=== PATIENT | male | born 1945 | race Caucasian/White ===

== ENCOUNTER → 2016-11-11 | Outpatient (CLI) | payer OTHER | LOC: CIMAGING 15:37 | PROVIDERS: ATTEND Physical Medicine & Rehabilitation | DX: M25.512 Pain in left shoulder (principal) | CPT/HCPCS: 73030-PO ==

== ENCOUNTER → 2016-11-17 | Outpatient (CLI) | payer OTHER ==
[~2016-11-17] MED LIST: IOPAMIDOL (ISOVUE 370) 100 ML BTL IV ONE; LIDOCAINE 1% 300 MG/30 ML SDV ONE; LIDOCAINE 1% 5 ML SDV ONE
== END ==
LOC: FIMAGING 13:09
PROVIDERS: ATTEND Physical Medicine & Rehabilitation
PROC: 3E0U3KZ Introduction of Other Diagnostic Substance into Joints, Percutaneous Approach (ICD-10-PCS; principal; 2016-11-17)
DX: S46.012A Strain of muscle(s) and tendon(s) of the rotator cuff of left shoulder, initial encounter (principal); S46.112A Strain of muscle, fascia and tendon of long head of biceps, left arm, initial encounter; S43.492A Other sprain of left shoulder joint, initial encounter; M19.012 Primary osteoarthritis, left shoulder; Z95.0 Presence of cardiac pacemaker
CPT/HCPCS: 23350; 73040; 73201; Q9967

== ENCOUNTER 2017-05-09 06:31 | Day surgery (SDC) | payer OTHER ==
--- NOTE | 2017-05-05 11:11 | GHP ---
[f rep st] PREOP HISTORY AND PHYSICAL DIAGNOSIS: Left shoulder rotator cuff tear. PLANNED SURGERY: Left shoulder arthroscopic rotator cuff repair, subacromial decompression, and distal clavicle excision. HISTORY OF PRESENT ILLNESS: The patient is a 72-year-old male with a long history of left shoulder pain. Recent MRI showed a full thickness tear in the rotator cuff. After discussing the risks and benefits of surgery, the patient opted for surgical intervention. PAST MEDICAL HISTORY: Hypertension. History of coronary artery disease. He has a pacemaker. He uses a CPAP machine. Also a history of cardiac stents being placed. MEDICATIONS: Atorvastatin, baby aspirin, Bactrim, clopidogrel, digoxin, famotidine, gemfibrozil, Prevnar 13, sertraline. ALLERGIES: Verapamil and contrast dye. SOCIAL HISTORY: Occasional alcohol use. No tobacco. No drug use. PHYSICAL EXAMINATION: GENERAL: He is alert and oriented, in no acute distress. SPINE: Examination of the cervical spine shows full pain free range of motion. The airway is clear. He is not tender. There are no carotid bruits heard. CARDIAC: Regular rate and rhythm. Normal S1, S2. No murmurs, rubs or gallops. PULMONARY: Lungs are clear. EXTREMITIES: Examination of the left upper extremity shows full passive and active range of motion. He has positive impingement signs. There is moderate weakness to rotator cuff testing. NEUROVASCULAR: Intact. ASSESSMENT/PLAN: The patient presents with a long history of left shoulder pain , secondary to rotator cuff tear. After discussing the risks and benefits of surgery the patient opts for surgical intervention. /[id number]/MODL MTDD
--- NOTE | 2017-05-09 06:16 | PDANEPAE ---
ANE History of Present Illness 72 yo male with full thickness RCT in L shoulder for repair. ANE Past Medical History - Cardiovascular History Hx Hypertension: No Hx Arrhythmias: Yes Hx Chest Pain: No Hx Coronary Artery / Peripheral Vascular Disease: Yes Hx CHF / Valvular Disease: No Hx Palpitations: No Cardiovascular History Comment: HX- WPW SYNDROME s/p ablation 1993. STENTS X3. PACEMAKER for bifascicular block and syncope. HYPERLIPIDEMIA - Pulmonary History Hx COPD: No Hx Asthma/Reactive Airway Disease: No Hx Recent Upper Respiratory Infection: No Hx Oxygen in Use at Home: No Hx Sleep Apnea: Yes Sleep Apnea Screening Result - Last Documented: Positive Pulmonary History Comment: POS SLEEP APNEA W/CPAP - Neurologic History Hx Cerebrovascular Accident: No Hx Seizures: No Hx Dementia: No - Endocrine History Hx Diabetes: No Hypothyroid: No - Renal History Hx Renal Disorders: No - Liver History Hx Hepatic Disorders: No - Neurological & Psychiatric Hx Hx Neurological and Psychiatric Disorders: Yes Neurological / Psychiatric History Comment: DEPRESSION - SERTRALINE - Cancer History Hx Cancer: No - Congenital Disorder History Hx Congenital Disorders: No - GI History GERD: moderate Hx Gastrointestinal Disorders: No - Other Health History Other Health History: SENSITIVE SKIN. THROMBOCYTOPENIA - Chronic Pain History Chronic Pain: No - Surgical History Prior Surgeries: KNEE SURGERY/REPAIR QUADRICEPS. PACEMAKER IMPLANTS X2. STENTS PLACED X3. TURP. HERNIA REPAIR. LUMBAR LAMINECTOMY. R RIBS X3. L SMALL FINGER ANE Review of Systems Review of Systems: - Exercise capacity METS (RN): 4 METS - Pacemaker Pacemaker Ornamenter: [employer] Date Pacemaker Last Checked: 03/29/2017 ANE Patient History - Allergies Allergies/Adverse Reactions: morphine Allergy (Intermediate, Verified 05/08/17 16:38) HALLUCINATIONS CONTRAST DYE Adverse Reaction (Severe, Uncoded 05/09/16 18:30) Rash RESERPINE Adverse Reaction (Severe, Uncoded 05/09/16 18:30) LOW BP VERAPAMIL Adverse Reaction (Unknown, Uncoded 05/09/16 18:30) - Home Medications Home Medications: Clopidogrel Bisulfate [Plavix] 06/26/11 [Last Taken Unknown] Gemfibrozil [Lopid] 06/26/11 [Last Taken Unknown] Aspirin 81mg (*) 05/09/16 [Last Taken Unknown] Atorvastatin Calcium 05/09/16 [Last Taken Unknown] Bactrim DS 05/09/16 [Last Taken Unknown] Sertraline HCl 05/09/16 [Last Taken Unknown] Famotidine 05/08/17 [Last Taken Unknown] Herbals/Supplements -Info Only 05/08/17 [Last Taken Unknown] - Smoking Hx Smoking Status: Never smoked - Family Anes Hx Family Hx Anesthesia Complications: NEG ANE Labs/Vital Signs - Vital Signs Height: 172.72 cm Weight: 97.522 kg ANE Anesthesia Plan Anesthesia Plan: GA w LMA Regional Anesthesia: interscalene BP NB
[2017-05-09] MEDS ORDERED: BUPIVACAINE/EPI 0.5% 30 ML SDV ONE (06:55)
[2017-05-09 07:01] VITALS: PULSE 91
[2017-05-09] MEDS ORDERED: LR 1,000 ML IV ONE (07:02)
[2017-05-09] MEDS ORDERED: PROPOFOL/EMULSION 500 MG/50 ML BOTTLE IV ONE (07:22)
[2017-05-09] MEDS ORDERED: DEXAMETHASONE 4 MG/ML VIAL ONE ×2 (07:22)
[2017-05-09] MEDS ORDERED: fentaNYL 100 MCG/2 ML INJ ONE ×2 (07:22)
[2017-05-09] MEDS ORDERED: ROPIVACAINE HCL 150 MG/30 ML INJ ONE (07:24)
[2017-05-09] MEDS ORDERED: CALCIUM CHLORIDE 1 GM/10 ML INJ ONE (08:28)
[2017-05-09] MEDS ORDERED: THROMBIN (BOVINE) 5,000 UNIT VIAL TP ONE (08:28)
[2017-05-09] MEDS ORDERED: NALOXONE HCL 0.4 MG/ML INJ IVP PRN ×2 (08:37→09:23)
[2017-05-09] MEDS ORDERED: PROMETHAZINE HCL 25 MG/ML INJ IVP PRN (09:23)
[2017-05-09] MEDS ORDERED: ALBUTEROL 3 ML DEYVIAL IH PRN (09:23)
[2017-05-09] MEDS ORDERED: OXYCODONE/APAP 5/325 TAB PO PRN ×2 (09:23→09:39)
[2017-05-09] MEDS ORDERED: ONDANSETRON 4 MG/2 ML VIAL IVP PRN (09:23)
[2017-05-09] MEDS ORDERED: fentaNYL 100 MCG/2 ML INJ IVP PRN (09:23)
[2017-05-09] MEDS ORDERED: LR 500 ML IV PRN (09:23)
[2017-05-09] MEDS ORDERED: ACETAMINOPHEN 500 MG TAB PO PRN (09:23)
[2017-05-09] MEDS ORDERED: ACETAMINOPHEN 325 MG TAB PO PRN (09:39)
[2017-05-09] MEDS ORDERED: HYDROCODONE/APAP 5/325 TAB PO PRN (09:39)
--- NOTE | 2017-05-09 09:39 | POSTOPPROG ---
Post Op Note Date of Operation: 05/09/17 Surgeon: Billie Marion Title Examiner: shannan Anesthesiologist: brennen Anesthesia: LMA Pre-op Diagnosis: l shoulder impingement with RCT and bicep tendinopathy Procedure: open l bicep tenodesis and r shoulder scope with rcr, sad, dce Inf/Abcess present in the surg proc area at time of surgery?: No Depth: Deep Incisional (Fascial) EBL: 50-100
--- NOTE | 2017-05-09 10:06 | POSTANESTH ---
Post Anesthetic Evaluation Cardiovascular Status: Normal, Stable, Similar to Pre-Op Cond (Suspect pt has some underlying HTN. Should be evaluated by PCP after recovered from shoulder surgery.) Respiratory Status: Normal, Stable Level of Consciousness/Mental Status: Can Participate in Eval, Mildly Sleepy, Arousable Pain Control: Adequate, Prn Tx Ordered Nausea/Vomiting Control: Adequate, Prn Tx Ordered Complications Possibly Related to Anesthesia: None Noted
[2017-05-09 10:07] VITALS: TEMP 98.1
[2017-05-09 10:49] VITALS: RESP 15
--- NOTE | 2017-05-09 13:11 | GOP ---
[f rep st] OPERATIVE REPORT DATE OF OPERATION: 05/09/2017 SURGEON: Billie Marion MD HAIRSPRING ASSEMBLER: Trav Bazan, CSFA, LSA, whose presence was medically necessary. ANESTHESIA: By LMA plus scalene nerve block per surgeon's request. PREOPERATIVE DIAGNOSIS: Left shoulder impingement syndrome with rotator cuff tear and biceps tendino alfredo. POSTOPERATIVE DIAGNOSIS: Left shoulder impingement syndrome with rotator cuff tear and biceps tendin opathy with labral tear. PROCEDURE PERFORMED: Open left biceps tenodesis with right and left shoulder scope with rotator cuff repair x1, subacromial decompression, distal clavicle excision, debridement of biceps stump, rotator cuff, labrum and subacromial bursa. FINDINGS: INDICATIONS: This is a 72-year-old male with a several-month history of left shoulder pain and weakn ess worsening with use and with time. CT exam reveals a rotator cuff tear as well as a significant a nterior acromial curve, and biceps tendinopathy. He wishes to have surgery in order to resolve the p roblem. DESCRIPTION OF PROCEDURE: Patient brought to the operating room after the left side had been identif ied as correct side by the patient, nurse and physician. Once in the operating room, he was given a scalene block on the left side and then placed under general anesthesia using an LMA. Once asleep, charlie harrison was placed in a beach chair position with the left upper extremity sterilely prepped and draped in the usual fashion using GSI solution. Once prepped and draped, an incision was made off the posterol ateral corner of the acromion with the camera introduced without difficulty. Inspection of the joint revealed an abundant amount of fraying of the rotator cuff, the biceps tendon as well as the labrum therefore, the camera was removed from the shoulder and attention was turned to the anterior portion of the shoulder. With a 4 cm incision made directly over the area of the biceps tendon, sharp dissec tion carried down through the skin and subcutaneous layers. Bleeding was controlled using electrocau shad. Blunt dissection was then carried down between the deltopectoral interval onto the biceps chung th. The biceps sheath was incised. The biceps tendon was isolated, had #2 FiberWire woven into it a nd was cut short. The diameter was measured to be 6 mm in diameter. Therefore, a guidewire was plac ed into the bicipital groove. A 7 mm drill was passed over the guidewire through one cortex of the h umerus. A 9 mm anchor was then attached onto the sutures associated with the biceps, was driven into the bone and screwed in until flush with the bony surface. The wound was then thoroughly irrigated with antibiotic solution and was closed in layers to include 2-0 Vicryl suture for the fascial layer, the subcutaneous layers and a 3-0 V-Loc suture in a running subcuticular stitch was used for the ski n. Attention was turned back to the shoulder, with the camera reintroduced into the posterior portal , using an in to out technique, an anterior portal was made with a 6 x 75 mm threaded cannula placed through the anterior portal. A 3.5 mm smooth shaver was used to debride both the abundant amount of tearing of the labrum as well as the rotator cuff. A biter was used to remove the anchor of the jalil ps tendon and the biceps tendon was then able to be removed in its entirety. Once the rotator cuff, labrum and biceps stump had been adequately debrided, all instruments were removed from the subacromi al space, and, using the same portal sites, were reintroduced from the glenohumeral joint and then, u sing the same portal sites, were reintroduced in the subacromial space. A third incision was made 3 cm lateral to the acromial process in line with the posterior cortex of the clavicle with the camera switched to the lateral portal, and alternating using arthroscopic Bovie tip and a shaver, was used t o remove the abundant amount of bursal tissue as well as the soft tissue from the undersurface of the acromion. He was noted to have a short, sharp anterior curve and an acromionizer bur was brought th rough the posterior portal and used to remove that curve until achieving a flat ceiling. Attention w as turned to the distal clavicle which was noted to have a short, sharp inferior spur, and this was a lso debrided to create a flat surface using a combination of shaver and ta. Once completed, the ca leslee was switched back to the posterior portal. The rotator cuff edges that were torn were debrided as well as the bone overlying the greater tuberosity was eburnated, roughing it up in order to stimul ate a healing response. A #2 FiberWire was woven into the anterior and posterior arms of the rotator cuff tear. It was then attached onto a [employer] anchor that was driven into the bone pulling the rot ator cuff onto the eburnated bone. Once in place, the suture was cut short. All instruments were th en removed from the subacromial space with 30 cc of Marcaine infused in the subacromial space. The 3 portal sites were closed using 3-0 nylon suture in a [id number] type stitch with plasma gel eduardo johnny in the subacromial space. The bicipital wound was dressed with Steri-Strips, otherwise all wound s were then dressed with Xeroform, 4 x 4, and Tegaderm. He was completely undraped in the operating room, had a shoulder immobilizer placed on the left upper extremity. He was then woken up, extubated , transferred onto a stretcher, and sent to recovery room in good condition. /[id number]/MODL
--- NOTE | 2017-05-09 13:28 | PDHOMEO2F ---
Home Oxygen Face to Face Home Orders: I certify that a physician or a nurse practitioner or physician's kindergarten teacher assistant has had a [id number] encounter with this patient on the date of this order due to the diagnosis listed, which relates to the primary reason the patient requires home oxygen. Alternative treatments have been tried, or considered, and deemed ineffective. It is anticipated that supplemental oxygen will result in improvement with treatment. Home oxygen qualifying diagnosis: probable HTN - untreated, BRI on CPAP, post- surgery SpO2 on room air (%): 84 while sleeping, 86 while awake Frequency of home oxygen needed: continuous Home oxygen liters per minute: 3 Home oxygen delivery device: nasal cannula Concentrator: Yes E-tanks for mobility and back up: Yes If ordering portable O2, is the patient mobile in the home?: Yes I certify that, based on these findings, the home oxygen is medically necessary for this patient for the following length of time. Length of time home oxygen needed: 1 week Home Oxygen Comment: Pt should follow-up with Dr. Dutta for guidance on O2 supplementation with CPAP for his BRI.
--- NOTE | 2017-05-09 13:36 | GHP ---
[f rep st] HISTORY AND PHYSICAL DATE OF ADMISSION: 05/09/2017 CURRENT COMPLAINT: Left shoulder pain. HISTORY OF PRESENT ILLNESS: The patient is a 72-year-old male who has been evaluated by other physic ians for shoulder pain. There is snapping occurring in the shoulder, particularly with irritation of the humerus. He has difficulty sleeping secondary to the shoulder. CT exam revealed a full-thickness supraspinatus tear as well as subluxation of the biceps tendon. ALLERGIES: Include IV dye and verapamil. CURRENT MEDICATIONS: Include atorvastatin, clopidogrel, digoxin, famotidine, gemfibrozil, _, and sertraline. PAST MEDICAL/SURGICAL HISTORY: He has no prior history and no prior surgery, although he does have a pacemaker. SOCIAL HISTORY: He has never been a smoker. He lists no alcohol use. PHYSICAL EXAM: The patient has mild limitations to range of motion with pain and weakness to the sup raspinatus on his Speed's test. There is tenderness to biceps groove. ASSESSMENT AND PLAN: The patient has a left shoulder impingement syndrome with rotator cuff tear and biceps subluxation. The plan is to take him to the operating room to undergo a left shoulder scope w ith rotator cuff repair and possible biceps tenodesis. /[id number]/MODL
[2017-05-09 13:43] VITALS: BP 112/66
[2017-05-09 14:22] VITALS: O2SAT 95
== END 2017-05-09 14:22 | disposition home or self-care (01) ==
LOC: FSGY 06:31
PROVIDERS: ATTEND Orthopaedic Surgery
PROC: 0PBB4ZZ Excision of Left Clavicle, Percutaneous Endoscopic Approach (ICD-10-PCS; principal; 2017-05-09 07:15)
PROC: 6A550Z2 Pheresis of Platelets, Single (ICD-10-PCS; principal; 2017-05-09 07:15)
PROC: 0MB24ZZ Excision of Left Shoulder Bursa and Ligament, Percutaneous Endoscopic Approach (ICD-10-PCS; principal; 2017-05-09 07:15)
PROC: 3E0U3GC Introduction of Other Therapeutic Substance into Joints, Percutaneous Approach (ICD-10-PCS; principal; 2017-05-09 07:15)
PROC: 0LQ24ZZ Repair Left Shoulder Tendon, Percutaneous Endoscopic Approach (ICD-10-PCS; principal; 2017-05-09 07:15)
PROC: 0LM40ZZ Reattachment of Left Upper Arm Tendon, Open Approach (ICD-10-PCS; principal; 2017-05-09 07:15)
DX: M75.112 Incomplete rotator cuff tear or rupture of left shoulder, not specified as traumatic (principal); M75.42 Impingement syndrome of left shoulder; M75.22 Bicipital tendinitis, left shoulder; I25.10 Atherosclerotic heart disease of native coronary artery without angina pectoris; Z95.5 Presence of coronary angioplasty implant and graft; I10 Essential (primary) hypertension; E78.5 Hyperlipidemia, unspecified; Z95.0 Presence of cardiac pacemaker
CPT/HCPCS: 0232T; 23430; 29826; 29827; C1713; J0171; J1100; J2704; J2795; J3010

== ENCOUNTER 2017-05-09 19:58 | Inpatient (IN) | payer OTHER ==
[2017-05-09] MEDS ORDERED: LORazepam 2 MG/ML INJ IVP ONE (20:07)
[2017-05-09] MEDS ORDERED: NS 500 ML IV ONE (20:07)
[2017-05-09] MEDS ORDERED: methylPREDNISolone SOD SUCC 125 MG/2 ML VIAL IVP ONE (20:09)
--- NOTE | 2017-05-09 20:12 | EDPHY ---
H & P Time Seen by Provider: 05/09/17 19:59 HPI/ROS: CHIEF COMPLAINT: Shortness of breath HISTORY OF PRESENT ILLNESS: Patient is a 72-year-old man who comes with his by ambulance to the emergency department complaining of sudden-onset shortness of breath that began about an hour ago. He had rotator cuff surgery repair early this morning. He denies having any chest pain. He thinks that the problem is primarily anxiety. He was told earlier today that he is supposed to have an oxygen concentrator attached to his nasal BiPAP that he wears at night for sleep apnea. He called the oxygen company who said they would bring 1 by today but then around 630 he stated that they would not be able to. It was after this that he became acutely short of breath. He was however hypoxic here on room air at 88%. He denies leg pain or swelling. He is tachycardic and hypertensive. REVIEW OF SYSTEMS: Constitutional: denies: chills, fever, recent illness, recent injury EENTM: denies: blurred vision, double vision, nose congestion Respiratory: denies: cough, shortness of breath Cardiac: denies: chest pain, irregular heart rate, lightheadedness, palpitations Gastrointestinal/Abdominal: denies: abdominal pain, diarrhea, nausea, vomiting, blood streaked stools Genitourinary: denies: dysuria, frequency, hematuria, pain Musculoskeletal: denies: joint pain, muscle pain Skin: denies: lesions, rash, jaundice, bruising Neurological: denies: headache, numbness, paresthesia, tingling, dizziness, weakness Hematologic/Lymphatic: denies: blood clots, easy bleeding, easy bruising Immunologic/allergic: denies: HIV/AIDS, transplant EXAM: GENERAL: Anxious, overweight, and in no acute distress. HEAD: Atraumatic, normocephalic. EYES: Pupils equal round and reactive to light, extraocular movements intact, sclera anicteric, conjunctiva are normal. ENT: TMs normal, nares patent, oropharynx clear without exudates. Moist mucous membranes. NECK: Normal range of motion, supple without lymphadenopathy or JVD. LUNGS: Breath sounds clear to auscultation bilaterally and equal. No wheezes rales or rhonchi. HEART: Regular rate and rhythm without murmurs, rubs or gallops. ABDOMEN: Soft, nontender, normoactive bowel sounds. No guarding, no rebound. No masses appreciated. BACK: No CVA tenderness, no spinal tenderness, step-offs or deformities EXTREMITIES: Normal range of motion, no pitting or edema. No clubbing or cyanosis. NEUROLOGICAL: Cranial nerves II through XII grossly intact. Normal speech, normal gait. 5/5 strength, normal movement in all extremities, normal sensation PSYCH: Normal mood, normal affect. SKIN: Warm, dry, normal turgor, no visible rashes or lesions. 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, WPW with ablation and now pacemaker - Family History Significant Family History: No pertinent family hx - Social History Smoking Status: Never smoked Alcohol Use: Sober Drug Use: None Constitutional: Initial Vital Signs Temperature (C) 36.9 C 05/09/17 19:58 Heart Rate 130 H 05/09/17 19:58 Respiratory Rate 28 H 05/09/17 19:58 Blood Pressure 149/85 H 05/09/17 19:58 O2 Sat (%) 88 L 05/09/17 19:58 O2 Delivery Mode Room Air O2 (L/minute) 3 Allergies/Adverse Reactions: morphine Allergy (Intermediate, Verified 05/09/17 20:12) HALLUCINATIONS CONTRAST DYE Allergy (Severe, Uncoded 05/09/17 22:55) Rash RESERPINE Allergy (Severe, Uncoded 05/09/17 22:55) LOW BP VERAPAMIL Allergy (Unknown, Uncoded 05/09/17 22:55) Home Medications: Medication Instructions Recorded Aspirin [Aspirin 81mg (*)] 81 mg PO DAILY 05/09/16 Atorvastatin Calcium [Lipitor 40 40 mg PO HS 05/09/16 mg (*)] Sertraline HCl [Zoloft 50mg (*)] 50 mg PO DAILY 05/09/16 Sulfamethox/Tmp 800/160 mg 1 tab PO DAILY 05/09/16 [Bactrim Ds] Famotidine [Pepcid 20 MG (*)] 20 mg PO BID PRN 05/08/17 Herbals/Supplements -Info Only 1 ea PO DAILY 05/08/17 Cholecalciferol Vit D3 [Vitamin D3 1,000 units PO DAILY 05/10/17 (*)] Clopidogrel Bisulfate [Plavix (*)] 75 mg PO DAILY 05/10/17 Gemfibrozil [Lopid 600 MG (*)] 600 mg PO BIDAC 05/10/17 Glucosamine/Chondroitin 1 each PO DAILY 05/10/17 [Glucosamine/Chondroitin (*)] Hydrocodone/Acetaminophen [Souris 1 each PO Q4-6PRN PRN 05/10/17 5/325 (*)] Multivitamins [Multivitamin (*)] 1 each PO DAILY 05/10/17 Vitamin B Complex [B Complex] 1 each PO DAILY 05/10/17 Medical Decision Making - Diagnostics EKG Interpretation: An EKG obtained and was read and documented in trace view. Please see trace view for full reading and report. Ventricular paced rhythm, morphology unchanged from previous EKGs Imaging: Discussed imaging studies w/ bingo caller Radiologist ED Course/Re-evaluation: I discussed the test results with the patient and his . They are very averse to going home tonight and wish to be admitted to the hospital. He is saturating 95% on room air but remains tachycardic. I will add sepsis testing. They are very anxious because they are anesthesiologist from today spoke with the primary doctor and recommended that oxygen be added to the patient's CPAP at night. However neither of them new that the patient had early pneumonia at the time. 10:50 p.m. I discussed the case with agrees with admission Differential Diagnosis: Partial list of the Differential diagnosis considered include but were not limited to; pneumonia, PE, and atelectasis, anxiety and although unlikely based on the history and physical exam, I also considered dissection, acute coronary disease. - Data Points Laboratory Results: Laboratory Results 05/10/17 02:05 05/10/17 02:05 Medications Given: Hydrocodone Bitart/Acetaminophen (Souris 5/325) 1 - 2 tab PO Q4HRS PRN PRN Reason: Pain, Moderate Able to Take PO Stop: 05/20/17 01:28 Last Admin: 05/10/17 20:56 Dose: 2 tab Atorvastatin Calcium (Lipitor) 40 mg PO HS DAVID Stop: 11/06/17 20:59 Last Admin: 05/10/17 20:56 Dose: 40 mg Azithromycin (Zithromax) 250 mg PO HS DAVID PRN Reason: Protocol Stop: 06/09/17 20:59 Last Admin: 05/10/17 20:56 Dose: 250 mg Clopidogrel Bisulfate (Plavix) 75 mg PO DAILY DAVID Stop: 11/06/17 12:59 Last Admin: 05/10/17 13:59 Dose: 75 mg Gemfibrozil (Lopid) 600 mg PO BIDAC DAVID Stop: 11/06/17 17:29 Last Admin: 05/10/17 18:45 Dose: Not Given Sodium Chloride (Ns) 1,000 mls @ 125 mls/hr IV CONT DAVID Stop: 11/05/17 23:14 Last Admin: 05/10/17 01:47 Dose: 1,000 mls Lorazepam (Ativan) 0.5 - 1 mg PO Q6HRS PRN PRN Reason: Anxiety, Able to Take PO Stop: 11/06/17 01:26 Last Admin: 05/10/17 21:32 Dose: 1 mg Discontinued Medications Diphenhydramine HCl (Benadryl Injection) 50 mg IVP EDNOW ONE Stop: 05/09/17 20:10 Last Admin: 05/09/17 20:26 Dose: 50 mg Sodium Chloride (Ns) 500 mls @ 1,000 mls/hr IV EDNOW ONE PRN Reason: Protocol Stop: 05/09/17 20:36 Last Admin: 05/09/17 20:27 Dose: 500 mls Sodium Chloride (Ns) 1,000 mls @ 0 mls/hr IV EDNOW ONE; Wide Open PRN Reason: Protocol Stop: 05/09/17 22:07 Last Admin: 05/09/17 22:15 Dose: 1,000 mls Ceftriaxone Sodium/Dextrose (Rocephin 1 Gm (Premix)) 50 mls @ 100 mls/hr IV EDNOW ONE PRN Reason: Protocol Stop: 05/09/17 22:35 Last Admin: 05/09/17 22:52 Dose: 50 mls Azithromycin 500 mg/ Dextrose 255 mls @ 255 mls/hr IV EDNOW ONE PRN Reason: Protocol Stop: 05/09/17 23:06 Last Admin: 05/09/17 23:19 Dose: 255 mls Lorazepam (Ativan Injection) 0.5 mg IVP EDNOW ONE Stop: 05/09/17 20:08 Last Admin: 05/09/17 20:26 Dose: 0.5 mg Methylprednisolone Sodium Succinate (Solu-Medrol) 125 mg IVP EDNOW ONE Stop: 05/09/17 20:10 Last Admin: 05/09/17 20:27 Dose: 125 mg Departure - Departure Disposition: [facility] Inpatient Acute Clinical Impression: Pneumonia Qualifiers: Pneumonia type: due to unspecified organism Laterality: left Lung location: lower lobe of lung Qualified Code(s): J18.1 - Lobar pneumonia, unspecified organism Condition: Fair
[2017-05-09 20:25] LABS: % IMMATURE GRANULYOCYTES 0.3 % (0.0-1.1); ABSOLUTE IMMATURE GRANULOCYTES 0.03 10^3/uL (0.00-0.10); ADD DIFF? NO; ADD MORPH? NO; ADD SCAN? NO; ATYPICAL LYMPHOCYTE FLAG 0 (0-99); FRAGMENT RBC FLAG 0 (0-99); HEMATOCRIT 45.3 % (40.0-51.0); HEMOGLOBIN 15.3 g/dL (13.7-17.5); LEFT SHIFT FLG 0 (0-99); LIPEMIA HEMOLYSIS FLAG 90 (0-99); MEAN CELL HEMOGLOBIN 31.4 pg (27.9-34.1); MEAN CELL HEMOGLOBIN CONCENTR. 33.8 g/dL (32.4-36.7); MEAN PLATELET VOLUME 11.3 fL (8.7-11.7); PLATELET CLUMPS FLAG 10 (0-99); PLATELET COUNT 114 10^3/uL (150-400); RED BLOOD CELL COUNT 4.87 10^6/uL (4.40-6.38); RED CELL DISTRIBUTION WIDTH 13.2 % (11.5-15.2)
[2017-05-09 20:32] LABS: APTT 25.8 SEC (23.0-38.0); INR 1.05 (0.83-1.16); PROTIME(PATIENT) 13.6 SEC (12.0-15.0)
--- NOTE | 2017-05-09 20:33 | CPEKG ---
Heart Rate: 117 RR Interval: 513 P-R Interval: 130 QRSD Interval: 142 QT Interval: 336 QTC Interval: 469 P Mamm[place]: 0 QRS [place]ammoth: 0 T Wave Mammoth: -43 EKG Severity - ABNORMAL ECG - EKG Impression: VENTRICULAR-PACED RHYTHM EKG Impression: Morphology unchanged Electronically Signed By: Kuldeep Ferrari 09-May-2017 20:35:12
[2017-05-09 20:36] LABS: ALANINE AMINOTRANSFERASE 27 IU/L (21-72); ALBUMIN 4.4 g/dL (3.5-5.0); ALKALINE PHOSPHATASE 74 IU/L (38-126); ANION GAP 15 mEq/L (8-16); ASPARTATE AMINOTRANSFERASE 33 IU/L (17-59); BILIRUBIN,TOTAL 0.4 mg/dL (0.1-1.4); BILIRUBIN-UNCONJUGATED 0.4 mg/dL (0.0-1.1); CALCIUM 9.7 mg/dL (8.5-10.4); CARBON DIOXIDE 21 mEq/l (22-31); CHLORIDE 107 mEq/L (97-110); CREATININE 1.4 mg/dL (0.7-1.3); GLOMERULAR FILTRATION RATE 50; GLUCOSE 119 mg/dL (70-100); POTASSIUM 4.7 mEq/L (3.5-5.2); SODIUM 143 mEq/L (134-144); TOTAL PROTEIN 6.7 g/dL (6.3-8.2)
[2017-05-09 20:46] LABS: TROPONIN I < 0.012 ng/mL (0.000-0.034)
[2017-05-09] MEDS ORDERED: IOPAMIDOL (ISOVUE 370) 100 ML BTL IV ONE (21:01)
[2017-05-09] MEDS ORDERED: NS 1,000 ML IV ONE (22:06)
[2017-05-09] MEDS ORDERED: AZITHROMYCIN IV 500 MG in D5W 250 ML IV ONE (22:07)
[2017-05-09] MEDS ORDERED: ACETAMINOPHEN 325 MG TAB PO PRN (23:06)
[2017-05-09] MEDS ORDERED: ONDANSETRON 4 MG/2 ML VIAL IVP PRN (23:06)
[2017-05-09] MEDS ORDERED: NS 1,000 ML IV SCH (23:15)
[2017-05-09 23:23] LABS: LACGHOST ORDER
[2017-05-10] MEDS ORDERED: diphenhydrAMINE 25 MG CAP PO PRN (01:28)
[2017-05-10] MEDS: LORazepam 1 MG TAB PO PRN ×2 (01:47→21:32)
[2017-05-10 02:30] LABS: % IMMATURE GRANULYOCYTES 0.2 % (0.0-1.1); ABSOLUTE IMMATURE GRANULOCYTES 0.02 10^3/uL (0.00-0.10); ADD DIFF? NO; ADD MORPH? NO; ADD SCAN? NO; ATYPICAL LYMPHOCYTE FLAG 0 (0-99); FRAGMENT RBC FLAG 0 (0-99); HEMATOCRIT 38.5 % (40.0-51.0); HEMOGLOBIN 13.1 g/dL (13.7-17.5); LEFT SHIFT FLG 0 (0-99); LIPEMIA HEMOLYSIS FLAG 90 (0-99); MEAN CELL HEMOGLOBIN 31.4 pg (27.9-34.1); MEAN CELL VOLUME 92.3 fL (81.5-99.8); MEAN PLATELET VOLUME 11.6 fL (8.7-11.7); PLATELET CLUMPS FLAG 0 (0-99); PLATELET COUNT 102 10^3/uL (150-400); RED BLOOD CELL COUNT 4.17 10^6/uL (4.40-6.38); RED CELL DISTRIBUTION WIDTH 13.3 % (11.5-15.2)
--- NOTE | 2017-05-10 03:12 | PDGENHP ---
History and Physical - Chief Complaint shortness of breath - History of Present Illness Source - Patient provides history and appears reliable. EMR reviewed and case discussed with ED provider. HPI - Pleasant 72 yo M with pmhx significant for CAD, HTN, HLD, gerd, anxiety and OA who presents to the ED this PM with complaint of sudden onset of SOB. Patient denies any pre-ceding cough/rhinorrhea/fevers/chills. Patient underwent a left rotator cuff repair as outpatient and was discharged home. Patient notes anesthesiology noted some hypoxia loc/intra-operatively and recommended oxygen supplementation for patient with his CPAP. Patient was doing well at home postoperatively however when the oxygen company did not arrive to patient home as scheduled he became "worked up." and increasingly anxious. He developed sudden onset shortness of breath. Patient denies any history of cough/rhinorrhea or other URI symptoms. His only other complaint at time of my interview is pain in his left arm. no numbness/tingling. History Information - Allergies/Home Medication List Allergies/Adverse Reactions: morphine Allergy (Intermediate, Verified 05/09/17 20:12) HALLUCINATIONS CONTRAST DYE Allergy (Severe, Uncoded 05/09/17 22:55) Rash RESERPINE Allergy (Severe, Uncoded 05/09/17 22:55) LOW BP VERAPAMIL Allergy (Unknown, Uncoded 05/09/17 22:55) Home Medications: Clopidogrel Bisulfate [Plavix] 06/26/11 [Last Taken Unknown] Gemfibrozil [Lopid] 06/26/11 [Last Taken 05/08/17] Aspirin 81mg (*) 05/09/16 [Last Taken 05/04/17] Atorvastatin Calcium 05/09/16 [Last Taken 05/08/17] Bactrim DS 05/09/16 [Last Taken 05/09/17] Sertraline HCl 05/09/16 [Last Taken 05/08/17] Famotidine 05/08/17 [Last Taken 05/08/17] Herbals/Supplements -Info Only 05/08/17 [Last Taken 05/08/17] I have personally reviewed and updated: family history, medical history, social history, surgical history - Past Medical History Additional medical history: herniated disk. MSSA staph dermatitis left leg. WPW s/p ablation/pacer. depression/significant anxiety. GERD. HLD. CAD. BRI on CPAP - Surgical History Additional surgical history: L rotator cuff repair. pacer placement with revision. L patella fracture repair. left 5th finger repair x 2. T/A. - Family History Additional family history: father - CAD no history of [place]. mother - DM II - Social History Smoking Status: Never smoked Alcohol Use: Rarely (beer) Drug Use: None Review of Systems Review of Systems: ROS: 10pt was reviewed & negative except for what was stated in HPI & below Constitutional: Denies: chills, fever EENMT: Denies: blurred vision, double vision, eye pain, nose congestion, sore throat, throat swelling Cardiac: Reports: edema. Denies: chest pain, lightheadedness Respiratory: Reports: shortness of breath. Denies: cough, orthopnea Gastrointestinal: Denies: vomitting, diarrhea, nausea Genitourinary: Denies: dysuria, hematuria Muscolosketal: Reports: joint pain (left arm), muscle pain (left arm) Skin: Reports: no symptoms. Denies: change in color, dryness Neurological: Reports: anxiety. Denies: emotional problems, headache, tingling Physical Exam Physical Exam: Temp Pulse Resp BP Pulse Ox 36.4 C 112 H 20 121/80 H 97 05/09/17 23:50 05/09/17 23:50 05/09/17 23:16 05/09/17 23:50 05/09/17 23:50 O2 (L/minute) 2.5 Constitutional: no apparent distress, appears nourished, uncomfortable (with movement of left upper extremity in immobilizer) Ears, Nose, Mouth, Throat: moist mucous membranes Cardiovascular: regular rate and rhythym, systolic murmur, edema (1+ pitting pretib bilaterally) Peripheral Pulses: 1+: dorsalis-pedis (R), dorsalis-pedis (L) Respiratory: no respiratory distress, other (left basilar crackle. decreased air movement at bases. no wheezing/rhonchi. ), No respiratory distress Gastrointestinal: normoactive bowel sounds, soft, non-tender abdomen, no palpable masses, other (obese abdomen) Genitourinary: no bladder fullness, no bladder tenderness, No villaseñor in urethra Skin: warm, normal color, other (left shoulder with dressings wrapped in tegaderm. serosanginous filled but no evidence active bleeding/oozing. ), No rash Musculoskeletal: other (left arm in immobilizer), No generalized weakness Neurologic: AAOx3, CN II-XII Intact, No weakness Psychiatric: anxious (patient becomes slightly restless as interview progresses and pt begins to note increased anxiet. no SI/HI. ), No depressed, No poor insight, No poor judgement, No poor memory Lab Data & Imaging Review 05/10/17 02:05 05/10/17 02:05 WBC 8.13 10^3/uL (3.80-9.50) 05/10/17 02:05 RBC 4.17 10^6/uL (4.40-6.38) L 05/10/17 02:05 Hgb 13.1 g/dL (13.7-17.5) L 05/10/17 02:05 Hct 38.5 % (40.0-51.0) L 05/10/17 02:05 MCV 92.3 fL (81.5-99.8) 05/10/17 02:05 MCH 31.4 pg (27.9-34.1) 05/10/17 02:05 MCHC 34.0 g/dL (32.4-36.7) 05/10/17 02:05 RDW 13.3 % (11.5-15.2) 05/10/17 02:05 Plt Count 102 10^3/uL (150-400) L 05/10/17 02:05 MPV 11.6 fL (8.7-11.7) 05/10/17 02:05 Neut % (Auto) 93.9 % (39.3-74.2) H 05/10/17 02:05 Lymph % (Auto) 3.7 % (15.0-45.0) L 05/10/17 02:05 Overton % (Auto) 2.1 % (4.5-13.0) L 05/10/17 02:05 Eos % (Auto) 0.0 % (0.6-7.6) L 05/10/17 02:05 Baso % (Auto) 0.1 % (0.3-1.7) L 05/10/17 02:05 Nucleat RBC Rel Count 0.0 % (0.0-0.2) 05/10/17 02:05 Absolute Neuts (auto) 7.63 10^3/uL (1.70-6.50) H 05/10/17 02:05 Absolute Lymphs (auto) 0.30 10^3/uL (1.00-3.00) L 05/10/17 02:05 Absolute Monos (auto) 0.17 10^3/uL (0.30-0.80) L 05/10/17 02:05 Absolute Eos (auto) 0.00 10^3/uL (0.03-0.40) L 05/10/17 02:05 Absolute Basos (auto) 0.01 10^3/uL (0.02-0.10) L 05/10/17 02:05 Absolute Nucleated RBC 0.00 10^3/uL (0-0.01) 05/10/17 02:05 Immature Gran % 0.2 % (0.0-1.1) 05/10/17 02:05 Immature Gran # 0.02 10^3/uL (0.00-0.10) 05/10/17 02:05 PT 13.6 SEC (12.0-15.0) 05/09/17 20:12 INR 1.05 (0.83-1.16) 05/09/17 20:12 APTT 25.8 SEC (23.0-38.0) 05/09/17 20:12 VBG Lactic Acid 1.4 mmol/L (0.7-2.1) 05/10/17 02:05 Sodium 143 mEq/L (134-144) 05/09/17 20:12 Potassium 4.7 mEq/L (3.5-5.2) 05/09/17 20:12 Chloride 107 mEq/L (97-110) 05/09/17 20:12 Carbon Dioxide 21 mEq/l (22-31) L 05/09/17 20:12 Anion Gap 15 mEq/L (8-16) 05/09/17 20:12 BUN 31 mg/dL (7-23) H 05/09/17 20:12 Creatinine 1.4 mg/dL (0.7-1.3) H 05/09/17 20:12 Estimated GFR 50 05/09/17 20:12 Glucose 119 mg/dL (70-100) H 05/09/17 20:12 Calcium 9.7 mg/dL (8.5-10.4) 05/09/17 20:12 Total Bilirubin 0.4 mg/dL (0.1-1.4) 05/09/17 20:12 Conjugated Bilirubin 0.0 mg/dL (0.0-0.5) 05/09/17 20:12 Unconjugated Bilirubin 0.4 mg/dL (0.0-1.1) 05/09/17 20:12 AST 33 IU/L (17-59) 05/09/17 20:12 ALT 27 IU/L (21-72) 05/09/17 20:12 Alkaline Phosphatase 74 IU/L (38-126) 05/09/17 20:12 Troponin I < 0.012 ng/mL (0.000-0.034) 05/09/17 20:12 Total Protein 6.7 g/dL (6.3-8.2) 05/09/17 20:12 Albumin 4.4 g/dL (3.5-5.0) 05/09/17 20:12 Lipase 78 IU/L (23-300) 05/09/17 20:12 Imaging Review: Chest CTA With IV Contrast History: Chest pain, rotator cuff surgery, possible pulmonary embolism. Technique: Ultrafast ultrathin [address] obtained through the chest after bolus administration of 90 mL of Isovue 370 nonionic contrast without complication. Soft tissue and bone window evaluation is performed. Dose reduction techniques were utilized. CT Chest: Findings: There is subsegmental left lower lobe and lingular consolidation with air bronchograms in the left lower lobe and normal pulmonary arterial perfusion. There is no evidence of pleural effusion, or pneumothorax. Heart size is normal and there is no pericardial effusion. A left chest wall pacer device is present. There is dense LAD coronary artery disease. There is a 9.7 x 9.1 mm microlobulated noncalcified solid pulmonary nodule in the right lower lobe ( image 100 series 6). There is no internal fat or calcification within the nodule. There is no mediastinal or hilar adenopathy. Incidentally noted is a solitary 17mm posterior right upper lobe lung cyst. CT Pulmonary Angiogram: Technique: Multiplanar and 3D reconstructions are reviewed on an independent 3D workstation. Findings: No filling defects or mural thickening is detected. Specifically, no evidence for pulmonary embolism. Right-sided heart chambers are not dilated and the interventricular septum has normal morphology. Impression: 1. Lingular and left lower lobe pneumonia 2. No evidence for pulmonary embolic disease. 3. Coronary artery disease. 4. Right lower lobe 9 mm noncalcified nodule. This was present in December 2006 at which time it was measured as 8 mm, but accurately comparing measurements is difficult due to differences in technique. Considering the slow growth, this is likely benign. Results called and discussed with [place], at 05/09/2017 21:48 Visualized and Interpreted Chest x-ray results: Yes Chest X-Ray results: infiltrate Visualized and Interpreted imaging results: Yes Visualized and Interpreted EKG results: Yes EKG additional interpertation: v paced rhythm 110s. no acute st changes. Assessment & Plan Assessment: Pleasant 72 yo M with pmhx significant for CAD, HTN, HLD, anxiety, RBI on CPAP presents to ED with c/o sudden onset SOB. 1. Pneumonia (Acute) LLL - CTA neg for evidence of PE. Patient started on coverage with azithromycin/rocephin. continue azithromycin. pt denies any pre- ceding sx before surgery but noted to have some hypoxia perioperatively/ postoperatively. reports SOB improved but still present. on 2 lpm oxygen. Will plan RA challenge again tomorrow for continuous oxygen need assessment. 2. hypoxia - pt presented with 88% on RA. exertional room air challenge in AM. supplemental oxygen at this time. 3. acute blood loss anemia - postoperative. monitor h/h in AM. no evidence of active bleeding/oozing at this time. current bandages saturated but no leaking apparent. 4. lyndsay - likely pre-renal. IVF. encourage po hydration as tolerated. 5. s/p L rotator cuff repair - postop instructions as previously given. 6. RLL calcified nodule - nearly stable. will recommend patient follow up with PCP before discharge. chronic medical problems. 7. anxiety/depression - patient with significant anxiety and mounting distress. he received 0.5 ativan and 50 benadryl in the ED and he reports improved symptoms but still awake and a little restless as interview progressed. continue with ativan prn may alternate with benadryl prn. will monitor respiratory status. continue sertraline when med rec available. 8. GERD - asymptomatic. continue famotidine 9. HTN - BPs acceptable at this time. await med rec completion but none listed at this time. 10. HLD - resume atorvastatin and lopid after discharge. 11. CAD - resume plavix, asa statin as per postop instructions. FEN - IVF overnight. encourage po hydration. electrolyte replacement prn. cardiac diet as tolerated. PPX - SCDs. holding anticoagulation postoperatively at this time. COR - FULL for 3 cycles CPR only. Patient Reta Amato is MDPOA.
[2017-05-10 03:17] LABS: ANION GAP 11 mEq/L (8-16); CALCIUM 9.1 mg/dL (8.5-10.4); CARBON DIOXIDE 22 mEq/l (22-31); CHLORIDE 112 mEq/L (97-110); GLOMERULAR FILTRATION RATE > 60; GLUCOSE 135 mg/dL (70-100); POTASSIUM 4.6 mEq/L (3.5-5.2); SODIUM 145 mEq/L (134-144)
--- NOTE | 2017-05-10 10:44 | ASMTCMCOM ---
CM Note CM Note Notes: Spoke w/w RN, anticipate pt will dc home w/support of when medcially stable, O2 arranged through [employer], CM available for any changes. Date Signed: 05/10/2017 10:43 AM Electronically Signed By:Rocio Norman RN
--- NOTE | 2017-05-10 12:54 | ASMTCMCOM ---
CM Note CM Note Notes: Spoke w/pt and who have concerns about getting pt home tomorrow. Per she cannot drive and niether can pt after shoulder sx. CM offered prepaid transportation pricing but states they cannot afford. Pt's states she will reach out to member of their christian who coordinates transportation for christian, to see if they can pick pt up. Pt's also wants CM to find out at what time they get charged for another day, they want pt to get dc'd before that time. I told I would find out and animal caregiver her a call back. Current Discharge Plan: Pt true dc home independent w/O2 Date Signed: 05/10/2017 12:53 PM Electronically Signed By:Rocio Norman RN
[2017-05-10] MEDS ORDERED: FAMOTIDINE 20 MG TAB PO PRN (13:00)
[2017-05-10] MEDS ORDERED: HYDROCODONE/APAP 5/325 TAB PO PRN (13:00)
[2017-05-10] MEDS ORDERED: SERTRALINE HCL 50 MG TAB PO SCH (13:00)
--- NOTE | 2017-05-10 13:04 | HOSPPROG ---
Hospitalist Progress Note Assessment/Plan: Pleasant 72 yo M with pmhx significant for CAD, HTN, HLD, anxiety, BRI on CPAP presents to ED with c/o sudden onset SOB. 1. Pneumonia (Acute) LLL - CTA neg for evidence of PE. Patient started on coverage with azithromycin/rocephin. continue azithromycin. pt denies any pre- ceding sx before surgery but noted to have some hypoxia perioperatively/ postoperatively. reports SOB improved but still present. on 2 lpm oxygen. Will plan RA challenge again tomorrow for continuous oxygen need assessment. 2. hypoxia - pt presented with 88% on RA. exertional room air challenge in AM. supplemental oxygen at this time. 3. acute blood loss anemia - postoperative. monitor h/h in AM. no evidence of active bleeding/oozing at this time. current bandages saturated but no leaking apparent. 4. lyndsay - likely pre-renal. IVF. encourage po hydration as tolerated. 5. s/p L rotator cuff repair - postop instructions as previously given. 6. RLL calcified nodule - nearly stable. will recommend patient follow up with PCP before discharge. chronic medical problems. 7. anxiety/depression - patient with significant anxiety and mounting distress. he received 0.5 ativan and 50 benadryl in the ED and he reports improved symptoms but still awake and a little restless as interview progressed. continue with ativan prn may alternate with benadryl prn. will monitor respiratory status. continue sertraline when med rec available. 8. GERD - asymptomatic. continue famotidine 9. HTN - BPs acceptable at this time. await med rec completion but none listed at this time. 10. HLD - resume atorvastatin and lopid after discharge. 11. CAD - resume plavix, asa statin as per postop instructions. FEN - IVF overnight. encourage po hydration. electrolyte replacement prn. cardiac diet as tolerated. PPX - SCDs. holding anticoagulation postoperatively at this time. COR - FULL for 3 cycles CPR only. Patient Reta Amato is MDPOA. Subjective: Feeling better today. Objective: Vital Signs Temp Pulse Resp BP Pulse Ox 36.4 C 107 H 18 151/70 H 94 05/10/17 12:00 05/10/17 12:00 05/10/17 12:00 05/10/17 12:00 05/10/17 12:00 Laboratory Results 05/10/17 02:05 05/10/17 02:05 05/09/17 05/10/17 05/11/17 05:59 05:59 05:59 Intake Total 2038 Balance 2038 PT 13.6 SEC (12.0-15.0) 05/09/17 20:12 INR 1.05 (0.83-1.16) 05/09/17 20:12 - Physical Exam Constitutional: obese, uncomfortable Eyes: PERRL, anicteric sclera Ears, Nose, Mouth, Throat: moist mucous membranes, hearing normal Cardiovascular: No JVD, No edema Respiratory: no respiratory distress, reduced air movement Gastrointestinal: No tenderness, No ascites Skin: warm, normal color Musculoskeletal: joint tenderness, pain with ROM Neurologic: AAOx3 Psychiatric: not anxious, not encephalopathic ICD10 Worksheet Patient Problems: Problems Problem Status Onset Syncope Acute Pneumonia Acute
[2017-05-10] MEDS: HYDROCODONE/APAP 5/325 TAB PO PRN ×2 (13:57→20:56)
[2017-05-10] MEDS: CLOPIDOGREL BISULFATE 75 MG TAB PO SCH (13:59)
[2017-05-10 15:02] LABS: BILIRUBIN,TOTAL 0.4 mg/dL (0.1-1.4)
--- NOTE | 2017-05-10 15:13 | ASMTCMCOM ---
JILLIAN Note JILLIAN Note Notes: Recieved email back from [employer], pt will incur a copay for entire visit, no additional "day" charge that is dependent on time of day. CM called pt's and notified her, she is still working on transportation. Date Signed: 05/10/2017 03:12 PM Electronically Signed By:Rocio Norman RN
--- NOTE | 2017-05-10 15:24 | PDMN ---
Medical Necessity Medical necessity: M282- cPNA- O2 sats 88% RA req 2-3 L O2- SOB, hypoxia, acute blood loss anemia post op-cont to monitor, ERON, in pt with pm hx for recent sgy, CAD, HTN, HLD, anxiety, BRI on CPAP -further monitoring and tx needed > 2 midnights
[2017-05-10] MEDS: GEMFIBROZIL 600 MG TAB PO SCH (18:45)
[2017-05-10] MEDS ORDERED: ATORVASTATIN CALCIUM 40 MG TAB PO SCH (21:00)
[2017-05-10] MEDS ORDERED: AZITHROMYCIN 250 MG TAB PO SCH (21:00)
[2017-05-11 08:03] VITALS: BP 149/80; TEMP 98.8
[2017-05-11] MEDS: HYDROCODONE/APAP 5/325 TAB PO PRN (08:14)
[2017-05-11] MEDS: CHOLECALCIFEROL VIT D3 1,000 UNITS TAB PO SCH ×2 (08:14→08:15)
[2017-05-11] MEDS: GEMFIBROZIL 600 MG TAB PO SCH (08:14)
[2017-05-11] MEDS: CLOPIDOGREL BISULFATE 75 MG TAB PO SCH (08:15)
--- NOTE | 2017-05-11 08:29 | HOSPPROG ---
Hospitalist Progress Note Assessment/Plan: Pleasant 72 yo M with pmhx significant for CAD, HTN, HLD, anxiety, BRI on CPAP presents to ED with c/o sudden onset SOB. Today is my first encounter with the patient, chart reviewed. * Pneumonia (Acute) LLL - CTA neg for evidence of P azithromycin/rocephin. afebrile * hypoxia due to the above O2 sats on room air stable *chronic sacral rash on suppression w Bactrim * anemia - postoperative. * lyndsay - likely pre-renal. creat stable * s/p L rotator cuff repair - postop instructions as previously given. further f/u w Dr Marion * RLL calcified nodule reviewed the findings w the patient/further f/u with his PCP *Obesity BMI of 31.2 *Mild tachycardia *Plan : dc home Subjective: Zana is feeling much better today. Objective: Vital Signs Temp Pulse Resp BP Pulse Ox 37.1 C 105 H 20 149/80 H 95 05/11/17 08:00 05/11/17 08:00 05/11/17 08:00 05/11/17 08:00 05/11/17 08:00 05/10/17 05/11/17 05/12/17 05:59 05:59 05:59 Intake Total 1900 Balance 1900 PT 13.6 SEC (12.0-15.0) 05/09/17 20:12 INR 1.05 (0.83-1.16) 05/09/17 20:12 - Physical Exam Constitutional: no apparent distress, obese, uncomfortable Eyes: PERRL Ears, Nose, Mouth, Throat: hearing normal Cardiovascular: regular rate and rhythym, tachycardia Respiratory: no respiratory distress, reduced air movement Skin: warm, other (left shoulder incision without drainage, no warmth) Musculoskeletal: muscular tenderness (left shoulder) Neurologic: AAOx3 Psychiatric: interacting appropriately ICD10 Worksheet Patient Problems: Problems Problem Status Onset Syncope Acute Pneumonia Acute
[2017-05-11] MEDS ORDERED: SULFAMETHOX/TMP 800/160 MG 1 TAB PO SCH (09:00)
[2017-05-11] MEDS ORDERED: ASPIRIN 81 MG CHEWABLE TAB PO SCH (09:00)
[2017-05-11] MEDS ORDERED: SERTRALINE HCL 50 MG TAB PO SCH (09:00)
[2017-05-11] MEDS ORDERED: VITAMIN B COMPLEX 1 EA CAP/TAB PO SCH (09:00)
[2017-05-11] MEDS ORDERED: Herbals/Supplements -Info Only PO SCH (09:00)
[2017-05-11] MEDS ORDERED: GLUCOSAMINE/CHONDROITIN CAP PO SCH (09:00)
[2017-05-11] MEDS ORDERED: MULTIVITAMINS 1 EACH TAB PO SCH (09:00)
[2017-05-11] MEDS ORDERED: ALBUTEROL 3 ML DEYVIAL ONE (09:57)
[2017-05-11 10:08] VITALS: PULSE 88; RESP 18; O2SAT 96
[2017-05-11] MEDS ORDERED: ALBUTEROL 3 ML DEYVIAL IH ONE (10:17)
--- NOTE | 2017-05-11 11:16 | GDS ---
[f rep st] DISCHARGE SUMMARY DISCHARGE DIAGNOSES: 1. Left lower lobe pneumonia. 2. Hypoxemia. 3. Chronic sacral rash, on suppression therapy. 4. Anemia. 5. Acute kidney injury. 6. Status post left rotator cuff repair. 7. Right lower lobe calcified nodule. 8. Obesity. 9. Tachycardia. HISTORY OF PRESENT ILLNESS: Briefly, the patient is a 72-year-old male with a history of coronary artery disease, hypertension, hyperlipidemia, GERD, anxiety , who presented to the emergency room with complaints of sudden onset of shortness of breath. He underwent a left rotator cuff repair as an outpatient, and was discharged home. He said he woke up and felt increasingly anxious, and he developed sudden shortness of breath. During his stay, he had a CTA of the chest to rule out pulmonary emboli. This showed no pulmonary emboli, but it did confirm coronary artery disease. He also has a right lower lobe 9 mm noncalcified nodule, which was present in December 2006. It was measured at 8 mm. I recommended that he further follow up in the outpatient setting with his PCP. HOSPITAL COURSE PER PROBLEM: 1. Left lower lobe pneumonia. He is markedly better. Will continue him on oral antibiotics. 2. Hypoxemia, resolved. 3. Chronic sacral rash. He sees Dr. Burt in the outpatient setting. He will be continued on suppression therapy with Bactrim. 4. Anemia, stable. 5. Acute kidney injury. Creatinine stable. 6. Status post left rotator cuff repair. Pain appears to be well managed. He is having more difficulty with wearing the band that supports this. He will further follow up with Dr. Marion in the outpatient setting. 7. Right lower lobe calcified nodule. Further findings with his PCP. I reviewed this with the patient. 8. Obesity. He has a BMI of 31.2. 9. Mild tachycardia. Suspect this is at times from anxiety. DISCHARGE CONDITION: Stable. Blood pressure is 149/80, heart rate is 105, respiratory rate is 20, O2 sats on room air 95%, temperature is 37.1 Celsius. MEDICATIONS AT DISCHARGE: Please see the EMR. DISCHARGE INSTRUCTIONS: 1. Further follow up with Dr. Marion. 2. If he develops fever, chills, chest pain, or shortness of breath, return to the ER. 3. Further follow up with his PCP in regard to the pulmonary nodules. 4. Repeat chest x-ray to confirm resolution of the pneumonia. 5. Greater than 30 minutes discharging and coordinating patient's care. /[id number]/MODL MTDD
--- NOTE | 2017-05-11 13:55 | ASDISCHSUM ---
Discharge Information Plan Status:Home with No Needs Medically Cleared to Leave: Discharge Date:05/11/2017 10:48 AM CM D/C Disposition:Home, Routine, Self-Care ADT D/C Disposition:Home, Routine, Self-Care Projected Discharge Date:05/11/2017 10:48 AM Transportation at D/C:Friend Discharge Delay Reason: Follow-Up Date:05/11/2017 10:48 AM Discharge Slot: Final Diagnosis: Placement Information Patient Contact Information Contact Name:MIMA Relationship: Address:[address] [place] Phone: [facility]/Zip Code:[place] [address] Email: Financial Information Financial Class:Medicare Advantage Plans Primary Plan Desc:[facility] ADVANTAGE PLAN Primary Plan Number:[id number] Secondary Plan Desc: Secondary Plan Number: Assessment Information [facility] Progress Note CM Note CM Note Notes: Spoke w/w FARAZ, anticipate pt will dc home w/support of when medcially stable, O2 arranged through JILLIAN Pichardo available for any changes. Date Signed: 05/10/2017 10:43 AM Electronically Signed By:Rocio Norman RN [facility] Progress Note CM Note CM Note Notes: Spoke w/pt and who have concerns about getting pt home tomorrow. Per she cannot drive and niether can pt after shoulder sx. CM offered prepaid transportation pricing but states they cannot afford. Pt's states she will reach out to member of their buddhist who coordinates transportation for buddhist, to see if they can pick pt up. Pt's also wants CM to find out at what time they get charged for another day, they want pt to get dc'd before that time. I told I would find out and consumer loan processor her a call back. Current Discharge Plan: Pt true dc home independent w/O2 Date Signed: 05/10/2017 12:53 PM Electronically Signed By:Rocio Norman RN [facility] JILLIAN Progress Note CM Note CM Note Notes: Recieved email back from [employer], pt will incur a copay for entire visit, no additional "day" charge that is dependent on time of day. JILLIAN called pt's and notified her, she is still working on transportation. Date Signed: 05/10/2017 03:12 PM Electronically Signed By:Rocio Norman RN Case Management Discharge Plan Note Case Management Discharge Discharge Order Complete? Answers: Yes Patient to Obtain Answers: Independently Medications Transportation Arranged Answers: Family/Friends Transport will Pick (Date 05/11/2017 12:00 PM & Time) Family Notified Answers: Yes Discharge Comments Notes: Met with patient and family, they have a friend who will transport them home. Pt does not want homecare, CM available for any changes. Date Signed: 05/11/2017 10:07 AM Electronically Signed By:Rocio Norman RN Intervention Information Intervention Type:*IM-Signed Date of Service:05/10/2017 12:22 PM Patient Type:Observation Staff Member:Anisa Azevedo Hours: Discipline: Severity: Comment:
== END 2017-05-11 10:48 | disposition home or self-care (01) | DRG 194 ==
LOC: EDUNIT# → F3E 23:34 → OBSVTOIN 05-10 15:00
PROVIDERS: ADMIT Family Medicine; ATTEND Internal Medicine
DX: J18.9 Pneumonia, unspecified organism (principal); N17.9 Acute kidney failure, unspecified; D62 Acute posthemorrhagic anemia; I25.10 Atherosclerotic heart disease of native coronary artery without angina pectoris; I10 Essential (primary) hypertension; E78.5 Hyperlipidemia, unspecified; K21.9 Gastro-esophageal reflux disease without esophagitis; F41.9 Anxiety disorder, unspecified; G47.33 Obstructive sleep apnea (adult) (pediatric); R09.02 Hypoxemia; R21 Rash and other nonspecific skin eruption; R91.1 Solitary pulmonary nodule; E66.9 Obesity, unspecified; R00.0 Tachycardia, unspecified; Z68.31 Body mass index [BMI] 31.0-31.9, adult
CPT/HCPCS: 96374; 97161-GP; G0378; G8978-GP-CI; G8979-GP-CI; G8980-GP-CI; J0456; J0696; J1200; J2060; J2930; Q9967

== ENCOUNTER → 2017-06-21 | Outpatient (CLI) | payer OTHER | LOC: CIMAGING 09:54 | PROVIDERS: ATTEND Physician Assistant | DX: Z51.89 Encounter for other specified aftercare (principal); J18.1 Lobar pneumonia, unspecified organism | CPT/HCPCS: 71020-PO ==

== ENCOUNTER → 2018-04-10 | Outpatient (CLI) | payer OTHER | LOC: CIMAGING 13:25 | PROVIDERS: ATTEND Physician Assistant | DX: M11.261 Other chondrocalcinosis, right knee (principal); M23.8X1 Other internal derangements of right knee; M23.41 Loose body in knee, right knee | CPT/HCPCS: 73700-PO ==

== ENCOUNTER 2018-05-07 07:01 | Observation (INO) | payer OTHER ==
--- NOTE | 2018-05-06 14:32 | GHP ---
DATE OF ADMISSION: 05/07/2018 DATE OF PLANNED PROCEDURE: 05/07/2018. PREOPERATIVE DIAGNOSIS: Painful loose bodies, possible meniscal tear, right knee. PLANNED PROCEDURE: Arthroscopic loose body removal, partial meniscectomy. HPI: Zana is a 73-year-old male with recurrent pain and swelling in the knee. We obtained a CT scan , CT arthrogram of his knee because he could not undergo an MRI, which showed multiple loose bodies a nd a possible medial meniscal tear. Decision was made to proceed with an arthroscopic loose body rem oval and partial meniscectomy. PRIOR MEDICAL HISTORY: Hypertension, high cholesterol, cardiovascular disease. SURGICAL HISTORY: None. MEDICATIONS: Atorvastatin 40 mg daily, baby aspirin 81 mg daily, Plavix 75 mg daily, digoxin, famoti dine, gemfibrozil, sertraline. ALLERGIES: Iodinated contrast and verapamil. SOCIAL HISTORY: He is . Lives here in town with his . His has had multiple knee rivera rgeries and is recovering from a re-implantation of a total knee, and he is the primary caregiver. He does not smoke. He does not drink alcohol. REVIEW OF SYSTEMS: Unremarkable. No shortness of breath or chest pain. PHYSICAL EXAM: A 73-year-old male. VITAL SIGNS: He is 5 feet 9 inches tall, weighs 200 pounds, blo od pressure is 124/75, heart rate 75, respiratory rate 16 on room air. GENERAL: Alert and oriented x3. HEENT: Normocephalic, atraumatic. Extraocular muscles intact. NECK: Supple. There is no lym phadenopathy. No JVD. CHEST: Clear to auscultation. CARDIOVASCULAR: Regular rate and rhythm. AB DOMEN: Soft, nontender and nondistended. EXTREMITIES: Right knee shows 1+ effusion. There is tend erness, mainly on the medial joint line. Quite a bit of crepitus with flexion and extension beneath the patella. Patella tracks out laterally. He has full extension, flexes to about 125 degrees. The knee is stable to varus and valgus stress testing. Tanesha 1+ with a firm endpoint. Negative poste rior drawer. Positive Stef sign on the medial joint line. Calf is soft; 1+ dorsalis pedis and p osterior tibial pulses. CT is reviewed. It does show multiple loose bodies, tricompartment osteoart hritis. Questionable medial meniscal tear. ASSESSMENT: Painful loose bodies with probable medial meniscal tear, right knee. PLAN: We will proceed with an arthroscopic loose body removal and medial meniscectomy. This will be done at the hospital on Monday. Given that he is a primary caregiver for his , I think he will need to stay overnight in the hospital to recover a little more fully before he goes home the next da y. He is in agreement with that plan. Preoperative paperwork was completed. /[id number]/MODL
[2018-05-07] MEDS ORDERED: ceFAZolin 2 GM/DEXTROSE 100 ML IV ONE (07:20)
[2018-05-07] MEDS ORDERED: LR 1,000 ML IV ONE (07:21)
[2018-05-07] MEDS ORDERED: BUPIVACAINE/EPI 0.5% 30 ML SDV ONE (07:38)
[2018-05-07] MEDS ORDERED: LIDO/EPI 1% **for epidural** 30 ML SDV ONE (07:39)
[2018-05-07] MEDS ORDERED: EPINEPHrine 1 MG/ML INJ ONE (07:39)
[2018-05-07] MEDS ORDERED: fentaNYL 100 MCG/2 ML INJ ONE (08:55)
[2018-05-07] MEDS ORDERED: PROPOFOL 200 MG/20 ML VIAL ONE (08:56)
[2018-05-07] MEDS ORDERED: METOCLOPRAMIDE 10 MG/2 ML VIAL ONE (08:58)
[2018-05-07] MEDS ORDERED: DEXAMETHASONE 4 MG/ML VIAL ONE (08:58)
[2018-05-07] MEDS ORDERED: ONDANSETRON 4 MG/2 ML VIAL ONE (08:58)
--- NOTE | 2018-05-07 09:42 | POSTOPPROG ---
Post Op Note Date of Operation: 05/07/18 Surgeon: Maico Nicole Anesthesiologist: Uriel Anesthesia: GET(General Endotracheal) Pre-op Diagnosis: Loose bodies, medial meniscal tear Post-op Diagnosis: same Procedure: loose body removal x 2 , partial medial menisectomy, PF chondroplasty , part Findings: Full thickness cartilage loss PF comp Inf/Abcess present in the surg proc area at time of surgery?: No EBL: Minimal Complications: none
[2018-05-07] MEDS ORDERED: oxyCODONE IR 5 MG TAB PO PRN (09:43)
[2018-05-07] MEDS ORDERED: HYDROCODONE/APAP 5/325 TAB PO PRN ×2 (09:43→09:46)
[2018-05-07] MEDS ORDERED: ONDANSETRON 4 MG/2 ML VIAL IVP PRN ×2 (09:43→09:46)
--- NOTE | 2018-05-07 09:45 | POSTANESTH ---
Post Anesthetic Evaluation Cardiovascular Status: Normal, Stable Respiratory Status: Requires Airway Assist Level of Consciousness/Mental Status: Mildly Sleepy, Arousable Complications Possibly Related to Anesthesia: None Noted
--- NOTE | 2018-05-07 09:45 | PDANEPAE ---
ANE History of Present Illness R Knee Scope ANE Past Medical History - Cardiovascular History Hx Hypertension: No Hx Arrhythmias: Yes Hx Chest Pain: No Hx Coronary Artery / Peripheral Vascular Disease: Yes Hx CHF / Valvular Disease: No Hx Palpitations: No Cardiovascular History Comment: HX- WPW SYNDROME s/p ablation 1993. STENTS X3. PACEMAKER for bifascicular block and syncope. HYPERLIPIDEMIA. followed by [facility] - Pulmonary History Hx COPD: No Hx Asthma/Reactive Airway Disease: No Hx Recent Upper Respiratory Infection: No Hx Oxygen in Use at Home: No Hx Sleep Apnea: Yes Sleep Apnea Screening Result - Last Documented: Positive Pulmonary History Comment: jocelyn positive uses cpap- instructed and pt to bring to hospital - Neurologic History Hx Cerebrovascular Accident: No Hx Seizures: No Hx Dementia: No - Endocrine History Hx Diabetes: No - Renal History Hx Renal Disorders: No - Liver History Hx Hepatic Disorders: No - Neurological & Psychiatric Hx Hx Neurological and Psychiatric Disorders: Yes Neurological / Psychiatric History Comment: DEPRESSION - Cancer History Hx Cancer: No - Congenital Disorder History Hx Congenital Disorders: No - GI History Hx Gastrointestinal Disorders: Yes Gastrointestinal History Comment: reflux - Other Health History Other Health History: SENSITIVE SKIN. THROMBOCYTOPENIA. wears glasses. doesn' t wear bilateral hearing aides - Chronic Pain History Chronic Pain: Yes (right knee) - Surgical History Prior Surgeries: 05/09/17 left shoulder scope, bicep tendon repair, rtc repair with Doni. KNEE SURGERY/REPAIR QUADRICEPS. PACEMAKER IMPLANTS X2. STENTS PLACED X3. TURP with [facility] 09/20/12. HERNIA REPAIR. LUMBAR LAMINECTOMY. R RIBS X3. 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 Pacemaker Model: 2240 Ethel CHUNG Pacemaker Mode: DDD Pacemaker Set Rate: 60 Date Pacemaker Last Checked: 10/09/17 ANE Patient History - Allergies Allergies/Adverse Reactions: morphine Allergy (Verified 05/01/18 10:33) HALLUCINATIONS CONTRAST DYE Allergy (Uncoded 05/01/18 10:33) Rash RESERPINE Allergy (Uncoded 05/01/18 10:33) LOW BP VERAPAMIL Allergy (Uncoded 05/01/18 10:33) - Home Medications Home Medications: Aspirin [Aspirin 81mg (*)] 81 mg PO DAILY 05/09/16 [Last Taken 05/07/18] Atorvastatin Calcium [Lipitor 40 mg (*)] 40 mg PO HS 05/09/16 [Last Taken ] Sertraline HCl [Zoloft 50mg (*)] 50 mg PO DAILY 05/09/16 [Last Taken 05/07/18] Sulfamethox/Tmp 800/160 mg [Bactrim DS] 1 tab PO DAILY 05/09/16 [Last Taken 06/12] Famotidine [Pepcid 20 MG (*)] 20 mg PO BID PRN 05/08/17 [Last Taken 05/07/18] Herbals/Supplements -Info Only 1 ea PO DAILY 05/08/17 [Last Taken 04/30/18] Cholecalciferol Vit D3 [Vitamin D3 (*)] 1,000 units PO DAILY 05/10/17 [Last Taken 05/06/18] Clopidogrel Bisulfate [Plavix (*)] 75 mg PO DAILY 05/10/17 [Last Taken 05/01/18] Gemfibrozil [Lopid 600 MG (*)] 600 mg PO BIDAC 05/10/17 [Last Taken 05/06/18] Glucosamine/Chondroitin [Glucosamine/Chondroitin (*)] 1 each PO DAILY 05/10/17 [ Last Taken 04/30/18] Multivitamins [Multivitamin (*)] 1 each PO DAILY 05/10/17 [Last Taken 04/30/18] Vitamin B Complex [B Complex] 1 each PO DAILY 05/10/17 [Last Taken 05/01/18] - NPO status NPO Since - Liquids (Date): 05/07/18 NPO Since - Liquids (Time): 05:30 NPO Since - Solids (Date): 05/06/18 NPO Since - Solids (Time): 18:00 - Smoking Hx Smoking Status: Never smoked - Family Anes Hx Family Hx Anesthesia Complications: none ANE Labs/Vital Signs - Labs Result Diagrams: 05/07/18 07:45 - Vital Signs Blood Pressure: 130/90 Heart Rate: 97 Respiratory Rate: 16 O2 Sat (%): 94 Height: 172.72 cm Weight: 95.254 kg ANE Physical Exam - Airway Neck exam: FROM Mallampati Score: Class 2 Mouth exam: normal dental/mouth exam - Pulmonary Pulmonary: clear to auscultation - Cardiovascular Cardiovascular: regular rate and rhythym - ASA Status ASA Status: III ANE Anesthesia Plan Anesthesia Plan: GA w LMA
[2018-05-07] MEDS ORDERED: HYDROmorphONE/DILAUDID 2 MG/ML INJ IVP PRN (09:46)
[2018-05-07] MEDS ORDERED: NALOXONE HCL 0.4 MG/ML INJ IVP PRN (09:46)
[2018-05-07] MEDS ORDERED: DEXAMETHASONE 4 MG/ML VIAL IVP PRN (09:46)
[2018-05-07] MEDS ORDERED: fentaNYL 100 MCG/2 ML INJ IVP PRN (09:46)
[2018-05-07] MEDS ORDERED: LR 1,000 ML IV SCH (10:00)
--- NOTE | 2018-05-07 10:12 | GOP ---
DATE OF OPERATION: 05/07/2018 SURGEON: Maico Nicole MD ANESTHESIA: General. ANESTHESIOLOGIST: Dr. Trevino PREOPERATIVE DIAGNOSIS: Right knee loose bodies with probable medial meniscal tear. POSTOPERATIVE DIAGNOSIS: Right knee loose bodies with probable medial meniscal tear. PROCEDURE PERFORMED: 1. Arthroscopic loose body removal x2. 2. Partial medial meniscectomy. 3. Patellofemoral chondroplasty. FINDINGS: ESTIMATED BLOOD LOSS: Minimal. INDICATIONS: The patient is a 73-year-old male who has had worsening right knee pain. Failed conser vative management including anti-inflammatory medicine, rest, ice, and elevation. CT scan showed mul tiple loose bodies, probable medial meniscal tear, and tricompartmental osteoarthritis. Decision was made to proceed with loose body removal, partial medial meniscectomy. DESCRIPTION OF PROCEDURE: After appropriate informed consent was obtained, the patient was taken to the operating room, placed supine on the table. Timeout was performed. Patient was identified. Cor rect site was identified. He received 2 g of Ancef preoperatively. Following the induction of gener al endotracheal tube anesthesia, right lower extremity was prepped and draped in usual sterile fashio n. I instilled 5 cc of 1% lidocaine with epinephrine at both anteromedial and anterolateral portals. Made a small bobby incision. Introduced the camera through a standard lateral portal. Patellofemoral compartment was inspected. There was on the lateral side, complete loss of cartilage both on the patella and the trochlear groove. The medial side of the patella and medial trochlear gr oove had grade II cartilage loss there. I repositioned the camera, obtained a standard anteromedial portal under direct visualization. There was a small loose body at the anterior horn of meniscus, de generative fraying and tearing throughout the body and posterior horn and meniscus. This was debride d back with the motorized shaver. Grade II cartilage loss in the medial compartment. There was anot her loose body almost 1 cm across just behind the ACL. This was removed with a grasper. Looking at the lateral side, again free edge fraying of the meniscus, small horizontal cleavage tear was debride d back with the motorized shaver. Grade II cartilage loss on both the femur and the patella. I repo sitioned the camera in the patellofemoral compartment, performed a gentle patellofemoral chondroplast y. The instruments were withdrawn. Portal incisions were closed with 2-0 nylon. I instilled 30 mL of 0 .5% Marcaine with epinephrine in the knee. Soft sterile dressing was applied. Patient was awakened from anesthesia, taken to recovery room in stable condition. He will be admitte d to the hospital for 23 hour observation due to his hypoxia following his shoulder surgery. COMPLICATIONS: None. DRAINS: None. /[id number]/MODL
[2018-05-07] MEDS: KETOROLAC 15 MG/1 ML SDV IVP SCH ×3 (12:07→23:58)
[2018-05-08] MEDS: KETOROLAC 15 MG/1 ML SDV IVP SCH (05:41)
--- NOTE | 2018-05-08 11:17 | SOAPPROG ---
SOAP Progress Note Assessment/Plan: Assessment: Plan: 05/08/18 11:15 POD#1 RT knee arthroscopy no post op hypoxia DC home resume home meds f/u [facility] 10-14 day for suture removal may remove dressing Monday shower Subjective: feeling good not much pain Objective: dressing c/d/i calf soft 5/5 df/pf 1+ dp/tp Vital Signs Temp Pulse Resp BP Pulse Ox 36.9 C 102 H 13 124/71 H 92 05/08/18 08:00 05/08/18 08:00 05/08/18 08:00 05/08/18 08:00 05/08/18 08:00 Laboratory Results 05/07/18 07:45 05/07/18 05/08/18 05/09/18 05:59 05:59 05:59 Intake Total 2210 500 Output Total 130 Balance 2080 500 ICD10 Worksheet Patient Problems: Problems Problem Status Onset Pneumonia Acute Syncope Acute
--- NOTE | 2018-05-08 11:19 | ASMTCMCOM ---
CM Note CM Note Notes: Spoke with pt in the room and with pt's RN and PT. Pt admitted for miniscus surgery and lives independently with , who has health issue. PT and RN recommending d/c home independently, however pt concerned he is unable to help with her needs. Pt would like [facility] for his , who has worked with [facility] in the past. CM shared that pt would have to reach out to 's PCP for referral to [facility]. Pt also has list of loan closets and a friend to transport him to clam picker a walker. Pt declines [facility] or a list of private duty home care agencies stating he is set. CM to follow. D/C Plan: Home independently Date Signed: 05/08/2018 11:18 AM Electronically Signed By:Martina Elizondo
[2018-05-08 12:13] VITALS: BP 113/67
== END 2018-05-08 13:08 | disposition home or self-care (01) ==
LOC: FSGY 07:01 → F3N 09:43
PROVIDERS: ADMIT Orthopaedic Surgery; ATTEND Orthopaedic Surgery
PROC: 0SBC4ZZ Excision of Right Knee Joint, Percutaneous Endoscopic Approach (ICD-10-PCS; principal; 2018-05-07 09:00)
PROC: 0SCC4ZZ Extirpation of Matter from Right Knee Joint, Percutaneous Endoscopic Approach (ICD-10-PCS; principal; 2018-05-07 09:00)
DX: M23.41 Loose body in knee, right knee (principal); M23.221 Derangement of posterior horn of medial meniscus due to old tear or injury, right knee; M23.261 Derangement of other lateral meniscus due to old tear or injury, right knee; I25.10 Atherosclerotic heart disease of native coronary artery without angina pectoris; E78.5 Hyperlipidemia, unspecified; I45.2 Bifascicular block; I10 Essential (primary) hypertension; G47.33 Obstructive sleep apnea (adult) (pediatric); Z95.0 Presence of cardiac pacemaker; Z95.5 Presence of coronary angioplasty implant and graft
CPT/HCPCS: 29880; 97161; 97165; G0378; G8978; G8979; G8980; G8987; G8988; G8989; J0171; J0690; J1100; J1885; J2405; J2704; J2765; J3010

== ENCOUNTER 2018-05-09 05:21 | Observation (INO) | payer OTHER ==
[2018-05-09] MEDS ORDERED: KETOROLAC 15 MG/1 ML SDV IVP ONE (05:30)
[2018-05-09] MEDS ORDERED: HYDROmorphONE/DILAUDID 2 MG/ML INJ IVP ONE (05:30)
[2018-05-09] MEDS ORDERED: ONDANSETRON 4 MG/2 ML VIAL ONE (05:35)
[2018-05-09] MEDS ORDERED: ONDANSETRON 4 MG/2 ML VIAL IVP ONE (05:36)
--- NOTE | 2018-05-09 05:47 | EDPHY ---
H & P Stated Complaint: R knee pain post surgery Time Seen by Provider: 05/09/18 05:29 HPI/ROS: HPI The patient presents with right knee pain, postoperative day 2. From right knee arthroscopic procedure with medial meniscusostomy, loose body removal. He stayed overnight in the hospital afterwards because of hypoxia. He return to his home yesterday afternoon. He went to the pharmacy to warp picker his prescription after leaving the hospital and did some grocery shopping, walking for about 30 min. He feels he may have overdone it. Since he has been at home he has taken a total of 20 mg of oxycodone which was prescribed to him. He says he has unrelenting aching knee pain most prominently in the popliteal fossa and in the superior aspect of his knee. He cannot get comfortable. He is unable to walk because of the pain. He is brought in by ambulance and received fentanyl 100 mcg EN route. REVIEW OF SYSTEMS 10 systems were reviewed and negative with the exception of the elements mentioned in the history of present illness. PMHx: CAD, hypertension, BRI Soc Hx: Lives at home with his who has mobility issues PHYSICAL General Appearance: Alert, no distress Eyes: Pupils equal and round no pallor or injection ENT, Mouth: Mucous membranes moist Respiratory: Breathing comfortably Neurological: A&O, moves all extremities Skin: Warm and dry, no rashes Musculoskeletal: Neck is supple non tender Extremities: Right knee with bandage in place anteriorly with small amount of dried blood, knee effusion is present, there is limited range of motion of the knee secondary to pain, calf is edematous, there is sensation throughout his leg and his leg is warm Psychiatric: Patient is oriented X 3, there is no agitation Source: Patient, EMS, Old records - Personal History Current Tetanus/Diphtheria Vaccine: Yes Current Tetanus Diphtheria and Acellular Pertussis (TDAP): Yes Tetanus Vaccine Date: 2009 - Medical/Surgical History Hx Asthma: No Hx Chronic Respiratory Disease: No Hx Diabetes: No Hx Cardiac Disease: Yes Hx Renal Disease: No Hx Cirrhosis: No Hx Alcoholism: No Hx HIV/AIDS: No Hx Splenectomy or Spleen Trauma: No Other PMH: herniated disk in neck, coronary artery disease, high cholesterol, 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, WPW with ablation and now pacemaker, HTN, BRI - Social History Smoking Status: Never smoked Constitutional: Initial Vital Signs Temperature (C) 36.7 C 05/09/18 05:29 Heart Rate 116 H 05/09/18 05:29 Respiratory Rate 18 05/09/18 05:29 Blood Pressure 149/86 H 05/09/18 05:29 O2 Sat (%) 95 05/09/18 05:29 O2 Delivery Mode Room Air O2 (L/minute) 2 Allergies/Adverse Reactions: morphine Allergy (Verified 05/01/18 10:33) HALLUCINATIONS CONTRAST DYE Allergy (Uncoded 05/01/18 10:33) Rash RESERPINE Allergy (Uncoded 05/01/18 10:33) LOW BP VERAPAMIL Allergy (Uncoded 05/01/18 10:33) Home Medications: Medication Instructions Recorded Aspirin [Aspirin 81mg (*)] 81 mg PO DAILY 05/09/16 Atorvastatin Calcium [Lipitor 40 40 mg PO HS 05/09/16 mg (*)] Sertraline HCl [Zoloft 50mg (*)] 50 mg PO DAILY 05/09/16 Sulfamethox/Tmp 800/160 mg 1 tab PO DAILY 05/09/16 [Bactrim DS] Famotidine [Pepcid 20 MG (*)] 20 mg PO BID PRN 05/08/17 Herbals/Supplements -Info Only 1 ea PO DAILY 05/08/17 Cholecalciferol Vit D3 [Vitamin D3 1,000 units PO DAILY 05/10/17 (*)] Clopidogrel Bisulfate [Plavix (*)] 75 mg PO DAILY 05/10/17 Gemfibrozil [Lopid 600 MG (*)] 600 mg PO BIDAC 05/10/17 Glucosamine/Chondroitin 1 each PO DAILY 05/10/17 [Glucosamine/Chondroitin (*)] Vitamin B Complex [B Complex] 1 each PO DAILY 05/10/17 Multivitamins W-Minerals [Thera M 1 each PO DAILY 05/07/18 Plus Tablet (*)] Selenium [Selenium 200mcg (*)] 200 mcg PO DAILY 05/07/18 oxyCODONE IR [Oxycodone Ir (*)] 5 - 10 mg PO Q4HRS PRN #30 tab 05/08/18 Medical Decision Making - Diagnostics Imaging Results: X-ray right knee two view shows no fracture, no dislocation, interpreted by me, radiology interpretation is pending. Ultrasound right leg demonstrates no DVT, discussed with Dr. Barrera. Imaging: I viewed and interpreted images myself Differential Diagnosis: 73-year-old man with multiple medical comorbidities who is postoperative day 2. For right knee arthroscopy for medial meniscal injury and removal of loose bodies by Dr. Nicole presents with increasing right knee pain, possibly related to walking too much after being discharged from the hospital. Here, his knee and leg are quite edematous and tender to palpation with limited range of motion. Patient was given pain medication with improvement in his symptoms. X-ray was obtained and appeared normal. DVT study is negative. The patient has ongoing pain despite medications here. He is unable to ambulate. He is requesting admission to the hospital. I have consulted with the patient's primary orthopedist Dr. Nicole who will admit him to the hospital. I have ordered him a hospital bed. Differential diagnoses include cellulitis, DVT, postoperative pain. - Data Points Laboratory Results: Laboratory Results 05/09/18 05:30 05/09/18 05:30 WBC 12.50 10^3/uL H 10^3/uL (3.80-9.50) RBC 5.00 10^6/uL 10^6/uL (4.40-6.38) Hgb 15.4 g/dL g/dL (13.7-17.5) Hct 46.6 % % (40.0-51.0) MCV 93.2 fL fL (81.5-99.8) MCH 30.8 pg pg (27.9-34.1) MCHC 33.0 g/dL g/dL (32.4-36.7) RDW 13.2 % % (11.5-15.2) Plt Count 128 10^3/uL L 10^3/uL (150-400) MPV 11.2 fL fL (8.7-11.7) Neut % (Auto) 88.8 % H % (39.3-74.2) Lymph % (Auto) 3.0 % L % (15.0-45.0) [place] % (Auto) 7.8 % % (4.5-13.0) Eos % (Auto) 0.0 % L % (0.6-7.6) Baso % (Auto) 0.2 % L % (0.3-1.7) Nucleat RBC Rel Count 0.0 % % (0.0-0.2) Absolute Neuts (auto) 11.10 10^3/uL H 10^3/uL (1.70-6.50) Absolute Lymphs (auto) 0.38 10^3/uL L 10^3/uL (1.00-3.00) Absolute Monos (auto) 0.98 10^3/uL H 10^3/uL (0.30-0.80) Absolute Eos (auto) 0.00 10^3/uL L 10^3/uL (0.03-0.40) Absolute Basos (auto) 0.03 10^3/uL 10^3/uL (0.02-0.10) Absolute Nucleated RBC 0.00 10^3/uL 10^3/uL (0-0.01) Immature Gran % 0.2 % % (0.0-1.1) Immature Gran # 0.03 10^3/uL 10^3/uL (0.00-0.10) RBC/WBC/PLT Morphology TNP Platelet Estimate TNP Medications Given: Discontinued Medications Hydromorphone HCl (Dilaudid) 0.5 mg IVP EDNOW ONE Stop: 05/09/18 05:31 Last Admin: 05/09/18 05:37 Dose: 0.5 mg Ketorolac Tromethamine (Toradol) 15 mg IVP EDNOW ONE Stop: 05/09/18 05:31 Last Admin: 05/09/18 05:40 Dose: 15 mg Ondansetron HCl (Zofran) 4 mg IVP EDNOW ONE Stop: 05/09/18 05:37 Last Admin: 05/09/18 05:36 Dose: 4 mg Departure - Departure Disposition: [facility] Acute Clinical Impression: H/O arthroscopy of right knee, Unable to bear weight Knee pain, acute Qualifiers: Laterality: right Qualified Code(s): M25.561 - Pain in right knee Condition: Fair Referrals: Violetta Roca MD [Primary Care Provider] - As per Instructions
[2018-05-09 06:23] LABS: PLATELET COUNT 128 10^3/uL (150-400)
[2018-05-09] MEDS ORDERED: HYDROmorphONE/DILAUDID 1 MG/ML INJ ONE (06:50)
[2018-05-09] MEDS ORDERED: HYDROmorphONE/DILAUDID 1 MG/ML INJ IVP ONE (06:51)
[2018-05-09] MEDS ORDERED: ONDANSETRON 4 MG/2 ML VIAL IVP PRN (07:09)
[2018-05-09] MEDS ORDERED: TEMAZEPAM 15 MG CAP PO PRN (07:09)
[2018-05-09] MEDS ORDERED: BISACODYL 10 MG SUPP PR PRN (07:09)
[2018-05-09] MEDS ORDERED: traMADol 50 MG TAB PO PRN (07:09)
[2018-05-09] MEDS ORDERED: ONDANSETRON DISINTEGRATING 4 MG TAB PO PRN (07:09)
[2018-05-09] MEDS ORDERED: PROMETHAZINE HCL 25 MG SUPPR PR PRN (07:09)
[2018-05-09] MEDS ORDERED: LACTULOSE 20 GM/30 ML UDCUP PO PRN (07:09)
[2018-05-09] MEDS ORDERED: PROMETHAZINE HCL 25 MG/ML INJ IVP PRN (07:09)
[2018-05-09] MEDS ORDERED: POLYETHYLENE GLYCOL 3350 17 GM PKT PO PRN (07:09)
[2018-05-09] MEDS ORDERED: MAGNESIUM HYDROXIDE 30 ML UDCUP PO PRN (07:09)
[2018-05-09] MEDS ORDERED: diphenhydrAMINE 25 MG CAP PO PRN (07:09)
[2018-05-09] MEDS ORDERED: CYCLOBENZAPRINE 10 MG TAB PO PRN (07:09)
--- NOTE | 2018-05-09 07:28 | GHP ---
DATE OF ADMISSION: 05/09/2018 HPI: The patient is a 73-year-old male, who underwent a right knee scope by myself on Monday. He st ayed overnight in the hospital because of past experience with hypoxia postoperatively after shoulder surgery. Vital signs were stable. His pain was well controlled and he was discharged home on . Unfortunately, during the day, he over did it. He ran errands, drove in the car, and th en last night he had intractable pain that was unable to be controlled at home with both oxycodone an d anti-inflammatory medicine, and he presented to the emergency room early this morning. He was give n some Dilaudid as well as some Toradol. Pain is a little bit better, but he just is having difficul ty managing at home on his own. PRIOR MEDICAL HISTORY: Coronary artery disease, hypertension, sleep apnea. SURGICAL HISTORY: Knee scope, shoulder surgery. MEDICATIONS: Please see attached medication list. SOCIAL HISTORY: He is retired. Lives at home with his . He is a primary caregiver for his who has had a revision knee arthroplasty and has limited mobility. This has been a struggle for him since his own surgery. PHYSICAL EXAM: GENERAL: He is alert and oriented x3. VITAL SIGNS: Temperature is 36.7, heart rate is 116, respiratory rate 18, blood pressure is 149/86, oxygen saturation 95% on 2 L. HEENT: Normoc ephalic, atraumatic. Extraocular muscles intact. NECK: Supple. There is no lymphadenopathy. No J VD. CHEST: Clear to auscultation. CARDIOVASCULAR: Regular rate and rhythm. ABDOMEN: Soft, nonte nder, nondistended. EXTREMITIES: Right extremity: Dressing is removed. Sutures remain in the woun ds. No drainage from the wounds. There is some swelling in the lower extremity. Compartments are s oft. He has 5/5 ankle dorsiflexion, plantar flexion strength. He has 1+ dorsalis pedis and posterio r tibial pulses. IMAGING: Plain x-rays, AP and lateral views taken in the emergency department show no acute fracture s in the knee and a DVT ultrasound study was negative for DVT. ASSESSMENT: Poor pain control postoperatively from right knee scope. PLAN: Zana is really not able to manage at home and being the primary caregiver, he cannot manage th at role right now. We are going to admit him to the hospital, see if we can get him on a pain medici ne regimen. We will have the Occupational and Physical therapists work with him as well. See if we can get his mobility a little bit better. I did explain to him there is a slight chance if we cannot get him more comfortable like this and independent in going home, he may need to do a short stay at a long term facility. /[id number]/MODL
[2018-05-09] MEDS ORDERED: LR 1,000 ML IV SCH (07:30)
[2018-05-09] MEDS ORDERED: FAMOTIDINE 20 MG TAB ONE (09:16)
[2018-05-09] MEDS ORDERED: ASPIRIN 81 MG CHEWABLE TAB ONE (09:16)
[2018-05-09] MEDS ORDERED: SENNOSIDES/DOCUSATE SODIUM TAB PO ONE (09:16)
[2018-05-09] MEDS: FAMOTIDINE 20 MG TAB PO SCH (09:19)
[2018-05-09] MEDS: SENNOSIDES/DOCUSATE SODIUM TAB PO SCH ×2 (09:19→21:07)
[2018-05-09] MEDS: oxyCODONE IR 5 MG TAB PO PRN ×4 (09:21→23:39)
[2018-05-09] MEDS ORDERED: oxyCODONE IR 5 MG TAB ONE (09:21)
[2018-05-09] MEDS: ACETAMINOPHEN 325 MG TAB PO SCH ×3 (14:11→23:39)
[2018-05-09] MEDS: KETOROLAC 15 MG/1 ML SDV IVP SCH ×3 (15:01→21:12)
[2018-05-09] MEDS: DIAZEPAM 5 MG TAB PO PRN ×2 (15:03→21:07)
[2018-05-09] MEDS: ASPIRIN 81 MG CHEWABLE TAB PO SCH (21:07)
[2018-05-10] MEDS: KETOROLAC 15 MG/1 ML SDV IVP SCH ×3 (03:32→16:17)
[2018-05-10] MEDS: ACETAMINOPHEN 325 MG TAB PO SCH ×4 (05:21→23:46)
[2018-05-10] MEDS: ASPIRIN 81 MG CHEWABLE TAB PO SCH ×2 (08:36→21:07)
[2018-05-10] MEDS: FAMOTIDINE 20 MG TAB PO SCH ×2 (08:36→21:07)
[2018-05-10] MEDS: SENNOSIDES/DOCUSATE SODIUM TAB PO SCH ×2 (08:36→21:06)
[2018-05-10] MEDS: oxyCODONE IR 5 MG TAB PO PRN (10:17)
--- NOTE | 2018-05-10 11:55 | ASMTCMCOM ---
CM Note CM Note Notes: CM spoke to FARAZ Brownlee regarding d/c POC. Pt is a 73 y/o man admitted for knee pain post operative from arthroscopy that took place on Monday. Therapies have been ordered and awaiting recommendations. Pt is the primary caregiver for his . Pts had knee surgery in September. Needs are TBD at this time. CM to follow. Plan: TBD Date Signed: 05/10/2018 11:54 AM Electronically Signed By:EULALIA Hernandez
--- NOTE | 2018-05-10 13:11 | PDIAF ---
- Diagnosis Diagnosis: Right knee meniscal tear, loose body, arthritis Code Status: Full Code - Medication Management Discharge Medications: electronically signed and located in the Home Medication List. - Orders Services needed: Registered Nurse, Physical Therapy, Occupational Therapy Diet Recommendation: no restrictions on diet Diet Texture: Regular Texture Diet Additional Instructions: WBAT RLE. PT/OT for ROM, edema management, gait training, etc. Follow up in office in 10-14 days for repeat evaluation - Follow Up Care Current Providers and Referrals: Violetta Roca MD [Primary Care Provider] - As per Instructions
--- NOTE | 2018-05-10 14:07 | ASMTCMCOM ---
CM Note CM Note Notes: PT is recommending SNF. Pts first choice is [facility]. Second choice is [facility]. Pt would like a private room. CM to follow. Plan: SNF Date Signed: 05/10/2018 02:06 PM Electronically Signed By:EULALIA Hernandez
[2018-05-10] MEDS: DIAZEPAM 5 MG TAB PO PRN (21:07)
[2018-05-11] MEDS: oxyCODONE IR 5 MG TAB PO PRN ×4 (02:53→16:09)
[2018-05-11] MEDS: ACETAMINOPHEN 325 MG TAB PO SCH ×2 (05:11→12:28)
[2018-05-11] MEDS: DIAZEPAM 5 MG TAB PO PRN (05:19)
--- NOTE | 2018-05-11 08:51 | SOAPPROG ---
SOAP Progress Note Assessment/Plan: Assessment on 05/10/18: Zana is s/p right knee arthroscopy by Dr. Nicole. He continues to complain of pain and swelling in the knee. PE: Moderate effusion and diffuse TTP. Calf is soft to compression without pain. NV Intact RLE Plan: Continue pain medication. We will plan on SNF placement when bed is available. Patient will follow up in our office in 10-14 days post op for suture removal and repeat evaluation. 05/11/18 08:49 Objective: Vital Signs Temp Pulse Resp BP Pulse Ox 36.6 C 110 H 12 146/94 H 98 05/11/18 07:24 05/11/18 07:24 05/11/18 07:24 05/11/18 07:24 05/11/18 07:24 05/10/18 05/11/18 05/12/18 05:59 05:59 05:59 Intake Total 2608 450 Output Total 700 400 200 Balance 1908 50 -200 ICD10 Worksheet Patient Problems: Problems Problem Status Onset H/O arthroscopy of right knee Acute Knee pain, acute Acute Unable to bear weight Acute Pneumonia Acute Syncope Acute
[2018-05-11] MEDS: ASPIRIN 81 MG CHEWABLE TAB PO SCH (09:34)
[2018-05-11] MEDS: FAMOTIDINE 20 MG TAB PO SCH (09:34)
[2018-05-11] MEDS: SENNOSIDES/DOCUSATE SODIUM TAB PO SCH (09:34)
[2018-05-11 10:15] VITALS: BP 149/89
--- NOTE | 2018-05-11 12:05 | PDHOSCONS ---
History and Physical - Chief Complaint tachycardia - History of Present Illness 73yo M with history of CAD s/p PCI in 2010, PPM for syncope with bifascicular block, HTN, anxiety who was admitted for uncontrolled right knee pain after an arthroscopy with Dr Nicole on Monday. He initially stayed overnight after the procedure due to concerns for hypoxemia and was discharged on Monday. He was unable to control his pain and returned Monday for pain management and inability to ambulate. He has been working with PT/OT. Medicine has been consulted for evaluation of tachycardia. On my interview with patient, he denies chest pain, palpitations, presyncopal/syncopal sxs, orthopnea, PND. He reports bilateral LE swelling of somewhat chronic nature with worsened swelling on the right after arthroscopy. Denies any history of PE or DVT. A RLE duplex ultrasound here is negative for DVT. Upon review of the chart, his HR has been 100-130 bpm this admission. ECG shows V-paced rhythm. Looking back at prior hospitalizations, his HR was 80-110s when he was here after the arthroscopy. Additionally, his HR was 100-130 during a hospitalization 04/2017 after a shoulder surgery which was complicated by pneumonia. A CTA of his chest at that time was negative for PE. History Information - Allergies/Home Medication List Allergies/Adverse Reactions: morphine Allergy (Verified 05/01/18 10:33) HALLUCINATIONS CONTRAST DYE Allergy (Uncoded 05/01/18 10:33) Rash RESERPINE Allergy (Uncoded 05/01/18 10:33) LOW BP VERAPAMIL Allergy (Uncoded 05/01/18 10:33) Home Medications: Aspirin [Aspirin 81mg (*)] 81 mg PO HS 05/09/16 [Last Taken 05/07/18] Atorvastatin Calcium [Lipitor 40 mg (*)] 40 mg PO HS 05/09/16 [Last Taken ] Sertraline HCl [Zoloft 50mg (*)] 50 mg PO DAILY 05/09/16 [Last Taken 05/07/18] Sulfamethox/Tmp 800/160 mg [Bactrim DS] 1 tab PO DAILY 05/09/16 [Last Taken 06/12] Famotidine [Pepcid 20 MG (*)] 20 mg PO BID 05/08/17 [Last Taken 05/07/18] Herbals/Supplements -Info Only 1 ea PO DAILY 05/08/17 [Last Taken 05/08/17] Cholecalciferol Vit D3 [Vitamin D3 (*)] 1,000 units PO HS 05/10/17 [Last Taken 05/06/18] Clopidogrel Bisulfate [Plavix (*)] 75 mg PO HS 05/10/17 [Last Taken 05/01/18] Gemfibrozil [Lopid 600 MG (*)] 600 mg PO HS 05/10/17 [Last Taken 05/06/18] Glucosamine/Chondroitin [Glucosamine/Chondroitin (*)] 1 each PO DAILY 05/10/17 [ Last Taken 04/30/18] Vitamin B Complex [B Complex] 1 each PO DAILY 05/10/17 [Last Taken 05/01/18] Multivitamins W-Minerals [Thera M Plus Tablet (*)] 1 each PO DAILY 05/07/18 [ Last Taken 04/30/18] Selenium [Selenium 200mcg (*)] 200 mcg PO DAILY 05/07/18 [Last Taken 04/30/18] I have personally reviewed and updated: family history, medical history, social history, surgical history - Past Medical History Additional medical history: CAD s/p LAD stent in 2010, syncope, HTN, HLD, MSSA cellulitis of LLE, GERD, depression, anxiety, BRI on CPAP, osteoarthritis, chronic sacral rash on suppressive antibiotics - Surgical History Additional surgical history: Pacemaker placement, L rotator cuff repair, L patella fracture repair, left 5th finger repair x 2, R knee arthroscopy, coronary stent, TURP - Family History Additional family history: father - CAD no history of MO. mother - DM II - Social History Smoking Status: Never smoked Alcohol Use: None Drug Use: None Review of Systems Review of Systems: ROS: 10pt was reviewed & negative except for what was stated in HPI & below Physical Exam Physical Exam: Temp Pulse Resp BP Pulse Ox 36.8 C 130 H 16 149/89 H 94 05/11/18 10:13 05/11/18 10:13 05/11/18 10:13 05/11/18 10:13 05/11/18 10:13 O2 (L/minute) 3 Constitutional: no apparent distress, obese Eyes: PERRL, EOMI Ears, Nose, Mouth, Throat: moist mucous membranes, hearing normal, ears appear normal, no oral mucosal ulcers Cardiovascular: systolic murmur (left sternal border without radiation), pulses symmetric bilaterally, tachycardia, edema (R (tense) > L lower extremities), No JVD Respiratory: no respiratory distress, no rales or rhonchi, clear to auscultation Gastrointestinal: normoactive bowel sounds, soft, non-tender abdomen, no palpable masses Genitourinary: no bladder fullness, no bladder tenderness Skin: warm, normal color, no rashes or abrasions, no fluctuance, no induration, No mottled Musculoskeletal: other (tenderness over right knee with effusion) Neurologic: AAOx3 Psychiatric: interacting appropriately, not anxious, not encephalopathic, thought process linear Lab Data & Imaging Review 05/09/18 05:30 WBC 12.50 10^3/uL (3.80-9.50) H 05/09/18 05:30 RBC 5.00 10^6/uL (4.40-6.38) 05/09/18 05:30 Hgb 15.4 g/dL (13.7-17.5) 05/09/18 05:30 Hct 46.6 % (40.0-51.0) 05/09/18 05:30 MCV 93.2 fL (81.5-99.8) 05/09/18 05:30 MCH 30.8 pg (27.9-34.1) 05/09/18 05:30 MCHC 33.0 g/dL (32.4-36.7) 05/09/18 05:30 RDW 13.2 % (11.5-15.2) 05/09/18 05:30 Plt Count 128 10^3/uL (150-400) L 05/09/18 05:30 MPV 11.2 fL (8.7-11.7) 05/09/18 05:30 Neut % (Auto) 88.8 % (39.3-74.2) H 05/09/18 05:30 Lymph % (Auto) 3.0 % (15.0-45.0) L 05/09/18 05:30 Smith % (Auto) 7.8 % (4.5-13.0) 05/09/18 05:30 Eos % (Auto) 0.0 % (0.6-7.6) L 05/09/18 05:30 Baso % (Auto) 0.2 % (0.3-1.7) L 05/09/18 05:30 Nucleat RBC Rel Count 0.0 % (0.0-0.2) 05/09/18 05:30 Absolute Neuts (auto) 11.10 10^3/uL (1.70-6.50) H 05/09/18 05:30 Absolute Lymphs (auto) 0.38 10^3/uL (1.00-3.00) L 05/09/18 05:30 Absolute Monos (auto) 0.98 10^3/uL (0.30-0.80) H 05/09/18 05:30 Absolute Eos (auto) 0.00 10^3/uL (0.03-0.40) L 05/09/18 05:30 Absolute Basos (auto) 0.03 10^3/uL (0.02-0.10) 05/09/18 05:30 Absolute Nucleated RBC 0.00 10^3/uL (0-0.01) 05/09/18 05:30 Immature Gran % 0.2 % (0.0-1.1) 05/09/18 05:30 Immature Gran # 0.03 10^3/uL (0.00-0.10) 05/09/18 05:30 RBC/WBC/PLT Morphology TNP 05/09/18 05:30 Platelet Estimate TNP 05/09/18 05:30 Visualized and Interpreted EKG results: Yes EKG additional interpertation: ECG: V-paced, tachycardic, not meeting Sgarbossa criteria for ischemia Assessment & Plan Assessment: 73yo M with history of CAD s/p PCI in 2010, PPM for syncope with bifascicular block, HTN, anxiety who was admitted for uncontrolled right knee pain after an arthroscopy with Dr Nicole on Monday. Medicine has been consulted for evaluation and management of tachycardia. Plan: 1. Tachycardia: He has a V-paced rhythm. Denies anginal symptoms. While PE is on the differential with recent procedure, I have a low suspicion for this and do not feel that CTA of his chest is necessary at present. Additionally, a RLE venous US was negative for DVT. He has been tachycardic in past hospitalizations which has previously been attributed to anxiety. I believe his current presentation is driven by pain. - Check troponin, BNP, TSH - Start metoprolol tartrate 12.5mg BID - Will discuss with cardiology re: pacemaker interrogation (Dr Ibrahim was wanting to do this post-op anyways) - Pain management per surgery 2. Systolic murmur: Noted on recent cardiology visit. TTE from 03/2017 without significant structural disease. Will hold on repeating for now as don't think contributing to above. 3. Right knee osteoarthritis s/p arthroscopy with Dr Nicole 4. CAD s/p LAD PCI: Normal stress test 08/2016. As above, denies anginal sxs. Continue medical therapy. Followed by Dr Ibrahim. 5. Pacemaker: Implanted for syncope in setting of bifascicular block. Interrogate as above. 6. HTN: BP a bit up. Again, likely driven by pain. See how he does with beta pilar and pain control. Thank you for this consult, we will continue to follow along.
[2018-05-11] MEDS ORDERED: METOPROLOL TARTRATE 25 MG TAB PO SCH (12:15)
--- NOTE | 2018-05-11 13:07 | CPEKG ---
Test Reason : OPEN Blood Pressure : / mmHG Vent. Rate : 120 BPM Atrial Rate : 120 BPM P-R Int : 211 ms QRS Dur : 183 ms QT Int : 351 ms P-R-T Axes : 028 -44 -24 degrees QTc Int : 496 ms Ventricular-paced rhythm Confirmed by Moises Crawford ([id number]) on 05/11/2018 1:07:20 PM Referred By: Confirmed By:Moises Crawford
--- NOTE | 2018-05-11 13:59 | ASMTCMCOM ---
CM Note CM Note Notes: [facility] has accepted pt. CM met w/ pt and informed him of this. Pt has questions about how his SNF will be covered. CM provided pt w/ Tangela's phone number from [facility]. CM to follow. Plan: [facility] Date Signed: 05/11/2018 01:57 PM Electronically Signed By:EULALIA Hernandez
--- NOTE | 2018-05-11 14:25 | ASMTLACE ---
LACE Length of stay for Answers: 2 days current admission Acuity / Level of Answers: Yes Care: Did the patient have an inpatient admission? Comorbidities - select Answers: Coronary Artery Disease all that apply Opioid dependence / Chronic pain Other Notes: HTN # of Emergency department Answers: 1-2 visits in the last 6 months Score: 13 Date Signed: 05/11/2018 02:24 PM Electronically Signed By:EULALIA Hernandez
--- NOTE | 2018-05-11 14:55 | ASDISCHSUM ---
Discharge Information Plan Status:SNF Medically Cleared to Leave:05/10/2018 Discharge Date:05/10/2018 CM D/C Disposition: ADT D/C Disposition:Other Rehab, Not Frank Projected Discharge Date:05/11/2018 11:00 AM Transportation at D/C: Discharge Delay Reason: Follow-Up Date:05/11/2018 11:00 AM Discharge Slot: Final Diagnosis: Placement Information Referral Type:*Assisted/SNF Referral ID:[id number] Provider Name:[facility] Address 1:[address] Address 2: City:[place] Selection Factors: State:[place] Patient Contact Information Contact Name:MIMA Relationship: Address:[address] [place] City:[place] Alternate Phone: State/Zip Code:[place] [address] Email: Financial Information Financial Class:Medicare Advantage Plans Primary Plan Desc:[facility] ADVANTAGE PLAN Primary Plan Number:[id number] Secondary Plan Desc: Secondary Plan Number: Assessment Information LACE LACE Length of stay for Answers: 2 days current admission Acuity / Level of Answers: Yes Care: Did the patient have an inpatient admission? Comorbidities - select Answers: Coronary Artery Disease all that apply Opioid dependence / Chronic pain Other Notes: HTN # of Emergency department Answers: 1-2 visits in the last 6 months Score: 13 Date Signed: 05/11/2018 02:24 PM Electronically Signed By:EULALIA Hernandez [facility] CM Progress Note CM Note CM Note Notes: CM spoke to FARAZ Brownlee regarding d/c POC. Pt is a 73 y/o man admitted for knee pain post operative from arthroscopy that took place on Monday. Therapies have been ordered and awaiting recommendations. Pt is the primary caregiver for his . Pts had knee surgery in September. Needs are TBD at this time. CM to follow. Plan: TBD Date Signed: 05/10/2018 11:54 AM Electronically Signed By:EULALIA Hernandez [facility] JILLIAN Progress Note CM Note CM Note Notes: PT is recommending SNF. Pts first choice is [facility]. Second choice is [facility]. Pt would like a private room. CM to follow. Plan: SNF Date Signed: 05/10/2018 02:06 PM Electronically Signed By:EULALIA Hernandez [facility] Progress Note CM Note CM Note Notes: [facility] has accepted pt. CM met w/ pt and informed him of this. Pt has questions about how his SNF will be covered. CM provided pt w/ Tangela's phone number from [facility]. CM to follow. Plan: [facility] Date Signed: 05/11/2018 01:57 PM Electronically Signed By:EULALIA Hernandez Case Management Discharge Plan Note Case Management Discharge Discharge Order Complete? Answers: Yes Patient to Obtain Answers: Other Notes: [facility] SNF Medications Transportation Arranged Answers: Other Notes: Yuliya Syed w/c Transport will Pick (Date 05/11/2018 04:00 PM & Time) EMTALA Complete Answers: No Case Management Transport Answers: Yes Form Complete Faxed Final Orders Answers: Yes Agency/Facility Transfer Answers: Yes Report Printed & Faxed to Receiving Agency Family Notified Answers: Yes Discharge Comments Notes: Pts case discussed w/ FARAZ Brownlee. Pt is being discharged today. DC orders sent to [facility]. CM provided Torrie alejandre/ phone number to give reports. CM completed non triggering PASRR. CM available for changes. Plan: [facility] Date Signed: 05/11/2018 02:53 PM Electronically Signed By:EULALIA Hernandez Intervention Information
--- NOTE | 2018-05-11 14:55 | ASMTDCNOTE ---
Case Management Discharge Discharge Order Complete? Answers: Yes Patient to Obtain Answers: Other Notes: [facility] SNF Medications Transportation Arranged Answers: Other Notes: [place] w/c Transport will Pick (Date 05/11/2018 04:00 PM & Time) EMTALA Complete Answers: No Case Management Transport Answers: Yes Form Complete Faxed Final Orders Answers: Yes Agency/Facility Transfer Answers: Yes Report Printed & Faxed to Receiving Agency Family Notified Answers: Yes Discharge Comments Notes: Pts case discussed w/ FARAZ Brownlee. Pt is being discharged today. DC orders sent to [facility]. CM provided Torrie w/ phone number to give reports. CM completed non triggering PASRR. CM available for changes. Plan: [facility] Date Signed: 05/11/2018 02:53 PM Electronically Signed By:EULALIA Hernandez
[2018-05-11] MEDS ORDERED: FAMOTIDINE 20 MG TAB PO SCH (21:00)
[2018-05-11] MEDS ORDERED: ATORVASTATIN CALCIUM 40 MG TAB PO SCH (21:00)
[2018-05-11] MEDS ORDERED: GEMFIBROZIL 600 MG TAB PO SCH (21:00)
[2018-05-12] MEDS ORDERED: SULFAMETHOX/TMP 800/160 MG 1 TAB PO SCH (09:00)
[2018-05-12] MEDS ORDERED: SERTRALINE HCL 50 MG TAB PO SCH (09:00)
== END 2018-05-11 16:49 ==
LOC: EDUNIT# → F3E 13:14
PROVIDERS: ADMIT Orthopaedic Surgery; ATTEND Orthopaedic Surgery
DX: G89.18 Other acute postprocedural pain (principal); M25.561 Pain in right knee; S83.206D Unspecified tear of unspecified meniscus, current injury, right knee, subsequent encounter; M25.461 Effusion, right knee; R00.0 Tachycardia, unspecified; R01.1 Cardiac murmur, unspecified; I25.10 Atherosclerotic heart disease of native coronary artery without angina pectoris; I10 Essential (primary) hypertension; G47.33 Obstructive sleep apnea (adult) (pediatric); E78.5 Hyperlipidemia, unspecified; K21.9 Gastro-esophageal reflux disease without esophagitis; Z98.890 Other specified postprocedural states; Z82.49 Family history of ischemic heart disease and other diseases of the circulatory system; Z95.0 Presence of cardiac pacemaker
CPT/HCPCS: 73560; 93005; 93971; 96374; 96375; 96376; 97116; 97162; 97166; 97535; 99285; G0378; G8978; G8979; G8987; G8988; G8989; J1170; J1885; J2405